=== PATIENT | male | born 1955 | race Caucasian/White ===

== ENCOUNTER 2017-10-15 11:04 | Inpatient (IN) | payer MEDICAID ==
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
[2017-10-15 12:26] LABS: % BASOPHILS 0.6 % (0.0-2.0); % EOSINOPHILS 5.2 % (0.0-5.0); % LYMPHOCYTES 13.2 % (20.0-50.0); % MONOCYTES 8.8 % (2.0-10.0); % NEUTROPHILS 72.2 % (40.0-80.0); EOSINOPHILE ABSOLUTE 0.2 Th/cmm (0.1-0.4); HEMATOCRIT 30.9 % (41.0-60); HEMOGLOBIN 10.3 gm/dL (12-16); LYMPHOCYTE ABSOLUTE 0.6 Th/cmm (1.5-3.0); MEAN CELL VOLUME 96.1 fl (80-99); MEAN CORPUSCULAR HGB CONC 33.3 pg (28.0-36.0); MEAN PLATELET VOLUME 8.1 fl; MONOCYTE ABSOLUTE 0.4 Th/cmm (0.3-1.0); PLATELET COUNT 67 Th/cmm (150-400); RED BLOOD COUNT 3.22 Mil/cmm (4.30-5.70); RED CELL DISTRIBUTION WIDTH 21.3 % (11.5-20.0); WHITE BLOOD COUNT 4.2 Th/cmm (4.8-10.8)
[2017-10-15 12:45] LABS: ALBUMIN 3.5 gm/dL (4.2-5.5); ALKALINE PHOSPHATASE 119 U/L (34-104); ANION GAP 9.7 (7.0-16.0); BILIRUBIN,TOTAL 1.4 mg/dL (0.3-1.0); BUN - UREA NITROGEN 22 mg/dL (7-25); CALCIUM SERUM 9.6 mg/dL (8.6-10.3); CARBON DIOXIDE 28.6 mEq/L (21.0-31.0); CHLORIDE 103 mEq/L (98-107); CREATININE - SERUM 0.8 mg/dL (0.7-1.3); GFR AFRICAN-AMERICAN > 60.0 ml/min (>90); GFR NON AFRICAN-AMERICAN > 60.0 ml/min; GLUCOSE 101 mg/dL (70-105); POTASSIUM SERUM 4.3 mEq/L (3.5-5.1); SGOT 23 U/L (13-39); SGPT/ALT 13 U/L (7-52); SODIUM SERUM 137 mEq/L (136-145); TOTAL PROTEIN,SERUM 7.1 gm/dL (6.0-8.3)
[2017-10-15] MEDS ORDERED: Hydrocodone/APAP 10 mg/325 mg Tab PO STA (12:45)
[2017-10-15] MEDS ORDERED: Hydrocodone/APAP 10 mg/325 mg Tab ONE (12:54)
--- NOTE | 2017-10-15 13:27 | Diagnostic Imaging Report ---
Portable chest x-ray HISTORY: Shortness of breath, cough The heart is enlarged. There does appear to be degree of pulmonary vascular redistribution consistent with a degree of congestive heart failure. Small right pleural effusion. Hazy interstitial markings. Surgical suture material noted over the mid chest. Right shoulder arthroplasty is seen. IMPRESSION: 1. Cardiomegaly with changes suggesting congestive heart failure is noted above. Clinical correlation is needed.
[2017-10-15 15:44] VITALS: BP 112/68
[2017-10-15] MEDS ORDERED: cefTRIAXone 1 GM in Sodium Chloride 0.9% 50 ML IV SCH (16:00)
[2017-10-15] MEDS: Cefepime 2 GM in Sodium Chloride 0.9% 100 ML IV SCH (16:58)
[2017-10-15] MEDS: D5-0.45NS 1,000 ML IV SCH (16:59)
[2017-10-15] MEDS ORDERED: Hydrocodone/APAP 10 mg/325 mg Tab PO ONE (17:01)
[2017-10-15] MEDS: Acetaminophen 500 MG TAB PO PRN (21:17)
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
[2017-10-16] MEDS: Cefepime 2 GM in Sodium Chloride 0.9% 100 ML IV SCH ×2 (04:14→16:36)
[2017-10-16 04:56] LABS: MEAN CELL VOLUME 95.6 fl (80-99)
[2017-10-16 05:04] LABS: HEMATOCRIT 26.2 % (41.0-60); HEMOGLOBIN 8.9 gm/dL (12-16); MEAN CORPUSCULAR HEMOGLOBIN 32.4 pg (26.0-30.0); MEAN CORPUSCULAR HGB CONC 33.9 pg (28.0-36.0); MEAN PLATELET VOLUME 7.8 fl; PLATELET COUNT 56 Th/cmm (150-400); RED BLOOD COUNT 2.74 Mil/cmm (4.30-5.70)
[2017-10-16] MEDS: Acetaminophen 500 MG TAB PO PRN (05:09)
[2017-10-16 05:14] LABS: MANUAL DIFF REQUIRED? YES; WHITE BLOOD COUNT 2.9 Th/cmm (4.8-10.8)
[2017-10-16 05:15] LABS: ANION GAP 8.9 (7.0-16.0); BUN - UREA NITROGEN 24 mg/dL (7-25); CARBON DIOXIDE 27.8 mEq/L (21.0-31.0); CHLORIDE 104 mEq/L (98-107); CHOLESTEROL 104 mg/dL (<200); CREATININE - SERUM 0.7 mg/dL (0.7-1.3); GFR AFRICAN-AMERICAN > 60.0 ml/min (>90); GFR NON AFRICAN-AMERICAN > 60.0 ml/min; GLUCOSE 102 mg/dL (70-105); HDL -HIGH DENSITY LIPOPROTEIN 50 mg/dL (23-92); POTASSIUM SERUM 3.7 mEq/L (3.5-5.1); SODIUM SERUM 137 mEq/L (136-145); TRIGLYCERIDES 30 mg/dL (<150)
[2017-10-16 06:09] LABS: TOTAL CELLS COUNTED 100
[2017-10-16 06:12] LABS: EOSINOPHIL 6 % (0-5); LYMPHOCYTE 10 % (20-50); MONOCYTE 5 % (2-10); NEUTROPHILS 79 % (40-80); PLATELET ESTIMATE SLIGHT DECREASED (NORMAL)
[2017-10-16 06:19] LABS: ESR SEDIMENTATION SED RATE 35 mm/hr (0-20)
[2017-10-16] MEDS: Aspirin 81mg Chewable Tab PO SCH (08:59)
[2017-10-16] MEDS ORDERED: CRANBERRY PO SCH (09:00)
--- NOTE | 2017-10-16 09:43 | Diagnostic Imaging Report ---
CT Chest without IV contrast HISTORY: Sternal infection, rule out abscess COMPARISON: None. Technique: Axial images were obtained from the base of the neck to the upper abdomen without IV contrast. Reconstructions were made. Total DLP to 44, CTD I 6.3 Findings: Exam is limited due to lack of IV contrast. The patient is status post median sternotomy. Minimal surrounding inflammatory changes are noted. Assessment for fluid collections limited due to lack of IV contrast, however, no discrete focal collection identified. Limited assessment of the mediastinum demonstrates no evidence of least adenopathy. Cardiomegaly is noted with atherosclerosis and evidence of previous aortic valve repair. Trace pericardial fluid is noted. Gynecomastia is normal bilaterally. Evaluation of the lung peterson demonstrate hypoventilatory and atelectatic changes of the lungs. Areas of passive atelectatic and consolidative changes seen along the lateral aspect of the right lung. There focal 5 mm nodular opacity possibly focal infiltrate along the anterior/inferior aspect of the right upper lobe (image 50, series 3). Additional 6 mm opacity possible infiltrate or less likely nodule the left lower lobe is noted (image 73, series 3) disease. No pleural effusions. The upper abdomen demonstrates cirrhotic appearing liver. Gallstones are noted. Splenomegaly is noted. There is a moderate-sized hiatal hernia gastroesophageal wall thickening in this region Postsurgical changes of the right shoulder are noted with evidence of right shoulder arthroplasty. Degenerative change of the spine are noted with old mild compression deformity of L1. There is 2 to 3 mm retropulsion at this level. Old left rib fractures are noted. IMPRESSION: Limited exam due to lack of IV contrast. There is evidence of prior median sternotomy. Minimal inflammatory changes of the regional planes, however, no evidence of an abscess. If necessary, short-term follow-up CT exam with IV contrast may be obtained. Passive atelectatic and minimal consolidative change of the lateral aspect of the right lung with probable areas of pleural thickening. There is a 5 mm nodular opacity along the peripheral aspect of the right upper lobe anteriorly and additional 6 mm nodular opacity along the left lung base. Findings may be due to infectious or inflammatory process versus less likely neoplastic process. Correlation with old exams would be helpful. Short-term follow-up 4-6 months surveillance is recommended. Evidence of prior aortic valve replacement Atherosclerotic vascular disease with tortuous aorta. Moderate size hiatal hernia. There is thickening of the gastroesophageal wall in this region. Infectious/inflammatory or neoplastic process cannot be excluded. Clinical correlation recommended. There are probable adjacent gastroesophageal varices. Note exam is limited due to lack of IV contrast. Cirrhotic appearing liver. Splenomegaly. Gallstones. Old mild compression deformity of L1 with 2 to 3 mm posterior retropulsion at this level. Findings appear chronic. Bilateral gynecomastia. Mammography may be helpful if needed.
[2017-10-16] MEDS ORDERED: Magnesium Hydroxide (MOM) 30 mL UDC PO PRN (10:58)
[2017-10-16] MEDS: HYDROmorphone 1 mg/mL 1mL Syr IVP PRN ×3 (12:13→20:53)
--- NOTE | 2017-10-16 14:49 | Diagnostic Imaging Report ---
Nuclear medicine 3 phase bone scan History: Pain, assess osteomyelitis of the sternum Comparison: CT chest on 07/16/2017 Technique/procedure: 24.5 millicuries of technetium labeled MDP was administered intravenously. Flow, blood pool, and delayed images of the sternum were obtained. Flow images demonstrate no significant focal uptake. Blood flow images demonstrate generalized uptake throughout the sternum. Delayed images also demonstrate generalized uptake throughout the sternum. IMPRESSION: General uptake throughout the sternum, this is nonspecific. Osteomyelitis cannot be completely excluded. If indicated MRI may be obtained for further assessment.
[2017-10-16] MEDS: D5-0.45NS 1,000 ML IV SCH (16:39)
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
[2017-10-17] MEDS: HYDROmorphone 1 mg/mL 1mL Syr IVP PRN ×5 (01:08→19:55)
[2017-10-17] MEDS: Cefepime 2 GM in Sodium Chloride 0.9% 100 ML IV SCH ×2 (04:22→15:55)
[2017-10-17] MEDS: Aspirin 81mg Chewable Tab PO SCH (08:37)
--- NOTE | 2017-10-17 10:41 | General Progress Note ---
Subjective - Review of Systems Service Date: 10/17/17 Objective - Results Result Diagrams: 10/16/17 04:30 10/16/17 04:30 Recent Labs: Laboratory Last Values WBC 2.9 Th/cmm (4.8-10.8) L 10/16/17 04:30 RBC 2.74 Mil/cmm (4.30-5.70) L 10/16/17 04:30 Hgb 8.9 gm/dL (12-16) L 10/16/17 04:30 Hct 26.2 % (41.0-60) L 10/16/17 04:30 MCV 95.6 fl (80-99) 10/16/17 04:30 MCH 32.4 pg (26.0-30.0) H 10/16/17 04:30 MCHC Differential 33.9 pg (28.0-36.0) 10/16/17 04:30 RDW 21.0 % (11.5-20.0) H 10/16/17 04:30 Plt Count 56 Th/cmm (150-400) L 10/16/17 04:30 MPV 7.8 fl 10/16/17 04:30 Neutrophils % 72.2 % (40.0-80.0) 10/15/17 12:20 Lymphocytes % 13.2 % (20.0-50.0) L 10/15/17 12:20 Monocytes % 8.8 % (2.0-10.0) 10/15/17 12:20 Eosinophils % 5.2 % (0.0-5.0) H 10/15/17 12:20 Basophils % 0.6 % (0.0-2.0) 10/15/17 12:20 Neutrophils (Manual) 79 % (40-80) 10/16/17 04:30 Lymphocytes 10 % (20-50) L 10/16/17 04:30 Monocytes 5 % (2-10) 10/16/17 04:30 Eosinophils 6 % (0-5) H 10/16/17 04:30 Platelet Estimate SLIGHT DECREASED (NORMAL) 10/16/17 04:30 ESR 35 mm/hr (0-20) H 10/16/17 04:30 Sodium 137 mEq/L (136-145) 10/16/17 04:30 Potassium 3.7 mEq/L (3.5-5.1) 10/16/17 04:30 Chloride 104 mEq/L (98-107) 10/16/17 04:30 Carbon Dioxide 27.8 mEq/L (21.0-31.0) 10/16/17 04:30 Anion Gap 8.9 (7.0-16.0) 10/16/17 04:30 BUN 24 mg/dL (7-25) 10/16/17 04:30 Creatinine 0.7 mg/dL (0.7-1.3) 10/16/17 04:30 Est GFR ( Amer) > 60.0 ml/min (>90) 10/16/17 04:30 Est GFR (Non-Af Amer) > 60.0 ml/min 10/16/17 04:30 BUN/Creatinine Ratio 34.3 10/16/17 04:30 Glucose 102 mg/dL (70-105) 10/16/17 04:30 Whole Bld Lactic Acid 1.59 mmol/L (0.60-1.99) 10/15/17 12:20 Calcium 9.0 mg/dL (8.6-10.3) 10/16/17 04:30 Total Bilirubin 1.4 mg/dL (0.3-1.0) H 10/15/17 12:20 AST 23 U/L (13-39) 10/15/17 12:20 ALT 13 U/L (7-52) 10/15/17 12:20 Alkaline Phosphatase 119 U/L (34-104) H 10/15/17 12:20 C-Reactive Protein 0.9 mg/dL (0.0-0.9) 10/16/17 04:30 Total Protein 7.1 gm/dL (6.0-8.3) 10/15/17 12:20 Albumin 3.5 gm/dL (4.2-5.5) L 10/15/17 12:20 Globulin 3.6 gm/dL 10/15/17 12:20 Albumin/Globulin Ratio 1.0 (1.0-1.8) 10/15/17 12:20 Triglycerides 30 mg/dL (<150) 10/16/17 04:30 Cholesterol 104 mg/dL (<200) 10/16/17 04:30 LDL Cholesterol Direct 43 mg/dL (75-193) L 10/16/17 04:30 HDL Cholesterol 50 mg/dL (23-92) 10/16/17 04:30 TSH 1.02 uIU/ml (0.34-5.60) 10/16/17 04:30 Vancomycin Trough 16.5 ug/mL (5-10) H 10/17/17 08:57 - Physical Exam Vitals and I&O: Vital Signs Temp 98.2 F 10/17/17 07:34 Pulse 73 10/17/17 07:34 Resp 18 10/17/17 08:00 BP 121/51 10/17/17 07:34 Pulse Ox 94 10/17/17 07:34 Intake & Output 10/16/17 10/17/17 10/17/17 18:59 06:59 18:59 Intake Total 3350 250 Balance 3350 250 Weight (lbs) 72.711 kg 74.525 kg Intake: Intake, IV Amount 1350 250 Cefepime 2 gm In Sodium 100 Chloride 0.9% 100 ml @ 100 mls/hr IV Q12H [facility] Rx #:[id number] D5-0.45NS 1,000 ml @ 50 1000 mls/hr IV .Q20H [facility] Rx#: [id number] Vancomycin HCl 1.25 gm In 250 250 Sodium Chloride 0.9% 250 ml @ 165 mls/hr IV Q12H [facility] Rx#:[id number] Oral 2000 Other: # Voids 4 # Bowel Movements 1 Stool Characteristics Formed Formed Hard Hard Weight Source Bedscale Bedscale Active Medications: Current Medications Acetaminophen (Tylenol) 650 mg PO Q6HR PRN PRN Reason: TEMP >100.5 OR MILD PAIN Stop: 12/14/17 19:08 Acetaminophen (Tylenol Extra Strength) 1,000 mg PO Q8H PRN PRN Reason: MODERATE PAIN Stop: 12/14/17 19:08 Last Admin: 10/16/17 05:09 Dose: 1,000 mg Aspirin (Aspirin Chewable) 81 mg PO DAILY [facility] Stop: 12/15/17 08:59 Last Admin: 10/17/17 08:37 Dose: 81 mg Bisacodyl (Dulcolax 10 Mg Supp) 10 mg RC DAILY PRN PRN Reason: IF MOM INEFFECTIVE Stop: 12/14/17 19:08 Bumetanide (Bumex) 1 mg PO DAILY [facility] Stop: 12/15/17 08:59 Last Admin: 10/17/17 08:40 Dose: Not Given Hydromorphone HCl (Dilaudid) 1 mg IVP Q4H PRN PRN Reason: Pain (Severe) Stop: 12/15/17 10:55 Last Admin: 10/17/17 09:38 Dose: 1 mg Cefepime HCl 2 gm/ Sodium (Chloride) 100 mls @ 100 mls/hr IV Q12H [facility] Stop: 12/14/17 15:59 Last Admin: 10/17/17 04:22 Dose: 100 mls/hr Dextrose/Sodium Chloride (D5-0.45ns) 1,000 mls @ 50 mls/hr IV .Q20H [facility] Stop: 12/14/17 15:06 Last Admin: 10/16/17 16:39 Dose: 50 mls/hr Vancomycin HCl 1.25 gm/ Sodium (Chloride) 250 mls @ 165 mls/hr IV Q12H [facility] Stop: 12/15/17 08:59 Last Admin: 10/17/17 09:38 Dose: 165 mls/hr Magnesium Hydroxide (Milk Of Magnesia) 30 ml PO HS PRN PRN Reason: Constipation Stop: 12/15/17 10:57 Miscellaneous (Vancomycin Iv Per Pharmacy) 1 ea [facility] PRN [facility] Stop: 12/14/17 15:14 Neomycin Sulfate (Neomycin) 500 mg PO Q6HR [facility] Stop: 12/16/17 00:00 Last Admin: 10/17/17 06:46 Dose: 500 mg Assessment/Plan - Problem List Patient Problems: All Active Problems SURGICAL ABSCESS FORMATIONS TO STERNUM (Acute) - Assessment Assessment: * Hepatitis C * Splenomegaly * Thrombocytopenia Monitor plt for now. no transfusion
--- NOTE | 2017-10-17 15:17 | General Progress Note ---
Subjective - Review of Systems Events since last encounter: in no acute distress Objective - Results Result Diagrams: 10/16/17 04:30 10/16/17 04:30 Recent Labs: Laboratory Last Values WBC 2.9 Th/cmm (4.8-10.8) L 10/16/17 04:30 RBC 2.74 Mil/cmm (4.30-5.70) L 10/16/17 04:30 Hgb 8.9 gm/dL (12-16) L 10/16/17 04:30 Hct 26.2 % (41.0-60) L 10/16/17 04:30 MCV 95.6 fl (80-99) 10/16/17 04:30 MCH 32.4 pg (26.0-30.0) H 10/16/17 04:30 MCHC Differential 33.9 pg (28.0-36.0) 10/16/17 04:30 RDW 21.0 % (11.5-20.0) H 10/16/17 04:30 Plt Count 56 Th/cmm (150-400) L 10/16/17 04:30 MPV 7.8 fl 10/16/17 04:30 Neutrophils % 72.2 % (40.0-80.0) 10/15/17 12:20 Lymphocytes % 13.2 % (20.0-50.0) L 10/15/17 12:20 Monocytes % 8.8 % (2.0-10.0) 10/15/17 12:20 Eosinophils % 5.2 % (0.0-5.0) H 10/15/17 12:20 Basophils % 0.6 % (0.0-2.0) 10/15/17 12:20 Neutrophils (Manual) 79 % (40-80) 10/16/17 04:30 Lymphocytes 10 % (20-50) L 10/16/17 04:30 Monocytes 5 % (2-10) 10/16/17 04:30 Eosinophils 6 % (0-5) H 10/16/17 04:30 Platelet Estimate SLIGHT DECREASED (NORMAL) 10/16/17 04:30 ESR 35 mm/hr (0-20) H 10/16/17 04:30 Sodium 137 mEq/L (136-145) 10/16/17 04:30 Potassium 3.7 mEq/L (3.5-5.1) 10/16/17 04:30 Chloride 104 mEq/L (98-107) 10/16/17 04:30 Carbon Dioxide 27.8 mEq/L (21.0-31.0) 10/16/17 04:30 Anion Gap 8.9 (7.0-16.0) 10/16/17 04:30 BUN 24 mg/dL (7-25) 10/16/17 04:30 Creatinine 0.7 mg/dL (0.7-1.3) 10/16/17 04:30 Est GFR ( Amer) > 60.0 ml/min (>90) 10/16/17 04:30 Est GFR (Non-Af Amer) > 60.0 ml/min 10/16/17 04:30 BUN/Creatinine Ratio 34.3 10/16/17 04:30 Glucose 102 mg/dL (70-105) 10/16/17 04:30 Whole Bld Lactic Acid 1.59 mmol/L (0.60-1.99) 10/15/17 12:20 Calcium 9.0 mg/dL (8.6-10.3) 10/16/17 04:30 Total Bilirubin 1.4 mg/dL (0.3-1.0) H 10/15/17 12:20 AST 23 U/L (13-39) 10/15/17 12:20 ALT 13 U/L (7-52) 10/15/17 12:20 Alkaline Phosphatase 119 U/L (34-104) H 10/15/17 12:20 C-Reactive Protein 0.9 mg/dL (0.0-0.9) 10/16/17 04:30 Total Protein 7.1 gm/dL (6.0-8.3) 10/15/17 12:20 Albumin 3.5 gm/dL (4.2-5.5) L 10/15/17 12:20 Globulin 3.6 gm/dL 10/15/17 12:20 Albumin/Globulin Ratio 1.0 (1.0-1.8) 10/15/17 12:20 Triglycerides 30 mg/dL (<150) 10/16/17 04:30 Cholesterol 104 mg/dL (<200) 10/16/17 04:30 LDL Cholesterol Direct 43 mg/dL (75-193) L 10/16/17 04:30 HDL Cholesterol 50 mg/dL (23-92) 10/16/17 04:30 TSH 1.02 uIU/ml (0.34-5.60) 10/16/17 04:30 Vancomycin Trough 16.5 ug/mL (5-10) H 10/17/17 08:57 - Physical Exam Vitals and I&O: Vital Signs Temp 98.0 F 10/17/17 11:24 Pulse 68 10/17/17 11:24 Resp 18 10/17/17 11:24 BP 110/63 10/17/17 11:24 Pulse Ox 97 10/17/17 11:24 Intake & Output 10/16/17 10/17/17 10/17/17 18:59 06:59 18:59 Intake Total 3350 250 Balance 3350 250 Weight (lbs) 72.711 kg 74.525 kg Intake: Intake, IV Amount 1350 250 Cefepime 2 gm In Sodium 100 Chloride 0.9% 100 ml @ 100 mls/hr IV Q12H [facility] Rx #:[id number] D5-0.45NS 1,000 ml @ 50 1000 mls/hr IV .Q20H [facility] Rx#: [id number] Vancomycin HCl 1.25 gm In 250 250 Sodium Chloride 0.9% 250 ml @ 165 mls/hr IV Q12H [facility] Rx#:[id number] Oral 2000 Other: # Voids 4 # Bowel Movements 1 Stool Characteristics Formed Formed Hard Hard Weight Source Bedscale Bedscale Active Medications: Current Medications Acetaminophen (Tylenol) 650 mg PO Q6HR PRN PRN Reason: TEMP >100.5 OR MILD PAIN Stop: 12/14/17 19:08 Acetaminophen (Tylenol Extra Strength) 1,000 mg PO Q8H PRN PRN Reason: MODERATE PAIN Stop: 12/14/17 19:08 Last Admin: 10/16/17 05:09 Dose: 1,000 mg Aspirin (Aspirin Chewable) 81 mg PO DAILY [facility] Stop: 12/15/17 08:59 Last Admin: 10/17/17 08:37 Dose: 81 mg Bisacodyl (Dulcolax 10 Mg Supp) 10 mg RC DAILY PRN PRN Reason: IF MOM INEFFECTIVE Stop: 12/14/17 19:08 Bumetanide (Bumex) 1 mg PO DAILY [facility] Stop: 12/15/17 08:59 Last Admin: 10/17/17 08:40 Dose: Not Given Hydromorphone HCl (Dilaudid) 1 mg IVP Q4H PRN PRN Reason: Pain (Severe) Stop: 12/15/17 10:55 Last Admin: 10/17/17 13:43 Dose: 1 mg Cefepime HCl 2 gm/ Sodium (Chloride) 100 mls @ 100 mls/hr IV Q12H [facility] Stop: 12/14/17 15:59 Last Admin: 10/17/17 04:22 Dose: 100 mls/hr Dextrose/Sodium Chloride (D5-0.45ns) 1,000 mls @ 50 mls/hr IV .Q20H [facility] Stop: 12/14/17 15:06 Last Admin: 10/16/17 16:39 Dose: 50 mls/hr Vancomycin HCl 1.25 gm/ Sodium (Chloride) 250 mls @ 165 mls/hr IV Q12H [facility] Stop: 12/15/17 08:59 Last Admin: 10/17/17 09:38 Dose: 165 mls/hr Magnesium Hydroxide (Milk Of Magnesia) 30 ml PO HS PRN PRN Reason: Constipation Stop: 12/15/17 10:57 Miscellaneous (Vancomycin Iv Per Pharmacy) 1 ea [facility] PRN [facility] Stop: 12/14/17 15:14 Neomycin Sulfate (Neomycin) 500 mg PO Q6HR [facility] Stop: 12/16/17 00:00 Last Admin: 10/17/17 11:18 Dose: 500 mg Assessment/Plan - Problem List Patient Problems: All Active Problems SURGICAL ABSCESS FORMATIONS TO STERNUM (Acute) - Assessment Assessment: Current Active Problems Problem Status Onset SURGICAL ABSCESS FORMATIONS TO STERNUM Acute chf hx aortic valve replacement hep c cirrhosis thrombocytopenia - Plan Plan: id consult wound care hematology consult continue the rest of the orders
[2017-10-17] MEDS: Diphenoxylate/Atropine 2.5mg Tab PO SCH (22:58)
[2017-10-18] MEDS: HYDROmorphone 1 mg/mL 1mL Syr IVP PRN ×4 (00:57→15:43)
[2017-10-18] MEDS: Cefepime 2 GM in Sodium Chloride 0.9% 100 ML IV SCH ×2 (04:03→15:39)
[2017-10-18 06:53] LABS: % BASOPHILS 0.6 % (0.0-2.0); % EOSINOPHILS 7.7 % (0.0-5.0); % LYMPHOCYTES 11.5 % (20.0-50.0); % MONOCYTES 11.4 % (2.0-10.0); % NEUTROPHILS 68.8 % (40.0-80.0); EOSINOPHILE ABSOLUTE 0.3 Th/cmm (0.1-0.4); HEMATOCRIT 29.6 % (41.0-60); HEMOGLOBIN 9.8 gm/dL (12-16); LYMPHOCYTE ABSOLUTE 0.4 Th/cmm (1.5-3.0); MEAN CELL VOLUME 95.4 fl (80-99); MEAN CORPUSCULAR HEMOGLOBIN 31.6 pg (26.0-30.0); MEAN CORPUSCULAR HGB CONC 33.1 pg (28.0-36.0); MEAN PLATELET VOLUME 8.4 fl; MONOCYTE ABSOLUTE 0.4 Th/cmm (0.3-1.0); NEUTROPHILE ABSOLUTE 2.3 Th/cmm (1.8-8.0); PLATELET COUNT 54 Th/cmm (150-400); RED BLOOD COUNT 3.11 Mil/cmm (4.30-5.70); RED CELL DISTRIBUTION WIDTH 20.4 % (11.5-20.0)
[2017-10-18 07:02] LABS: WHITE BLOOD COUNT 3.4 Th/cmm (4.8-10.8)
[2017-10-18] MEDS: Diphenoxylate/Atropine 2.5mg Tab PO SCH ×2 (08:09→13:35)
[2017-10-18] MEDS: Aspirin 81mg Chewable Tab PO SCH (08:09)
--- NOTE | 2017-10-18 10:38 | General Progress Note ---
Subjective - Review of Systems Service Date: 10/18/17 Objective - Results Result Diagrams: 10/18/17 05:28 10/16/17 04:30 Recent Labs: Laboratory Last Values WBC 3.4 Th/cmm (4.8-10.8) L 10/18/17 05:28 RBC 3.11 Mil/cmm (4.30-5.70) L 10/18/17 05:28 Hgb 9.8 gm/dL (12-16) L 10/18/17 05:28 Hct 29.6 % (41.0-60) L 10/18/17 05:28 MCV 95.4 fl (80-99) 10/18/17 05:28 MCH 31.6 pg (26.0-30.0) H 10/18/17 05:28 MCHC Differential 33.1 pg (28.0-36.0) 10/18/17 05:28 RDW 20.4 % (11.5-20.0) H 10/18/17 05:28 Plt Count 54 Th/cmm (150-400) L 10/18/17 05:28 MPV 8.4 fl 10/18/17 05:28 Neutrophils % 68.8 % (40.0-80.0) 10/18/17 05:28 Lymphocytes % 11.5 % (20.0-50.0) L 10/18/17 05:28 Monocytes % 11.4 % (2.0-10.0) H 10/18/17 05:28 Eosinophils % 7.7 % (0.0-5.0) H 10/18/17 05:28 Basophils % 0.6 % (0.0-2.0) 10/18/17 05:28 Neutrophils (Manual) 79 % (40-80) 10/16/17 04:30 Lymphocytes 10 % (20-50) L 10/16/17 04:30 Monocytes 5 % (2-10) 10/16/17 04:30 Eosinophils 6 % (0-5) H 10/16/17 04:30 Platelet Estimate SLIGHT DECREASED (NORMAL) 10/16/17 04:30 ESR 35 mm/hr (0-20) H 10/16/17 04:30 Sodium 137 mEq/L (136-145) 10/16/17 04:30 Potassium 3.7 mEq/L (3.5-5.1) 10/16/17 04:30 Chloride 104 mEq/L (98-107) 10/16/17 04:30 Carbon Dioxide 27.8 mEq/L (21.0-31.0) 10/16/17 04:30 Anion Gap 8.9 (7.0-16.0) 10/16/17 04:30 BUN 24 mg/dL (7-25) 10/16/17 04:30 Creatinine 0.7 mg/dL (0.7-1.3) 10/16/17 04:30 Est GFR ( Amer) > 60.0 ml/min (>90) 10/16/17 04:30 Est GFR (Non-Af Amer) > 60.0 ml/min 10/16/17 04:30 BUN/Creatinine Ratio 34.3 10/16/17 04:30 Glucose 102 mg/dL (70-105) 10/16/17 04:30 Whole Bld Lactic Acid 1.59 mmol/L (0.60-1.99) 10/15/17 12:20 Calcium 9.0 mg/dL (8.6-10.3) 10/16/17 04:30 Total Bilirubin 1.4 mg/dL (0.3-1.0) H 10/15/17 12:20 AST 23 U/L (13-39) 10/15/17 12:20 ALT 13 U/L (7-52) 10/15/17 12:20 Alkaline Phosphatase 119 U/L (34-104) H 10/15/17 12:20 C-Reactive Protein 0.9 mg/dL (0.0-0.9) 10/16/17 04:30 Total Protein 7.1 gm/dL (6.0-8.3) 10/15/17 12:20 Albumin 3.5 gm/dL (4.2-5.5) L 10/15/17 12:20 Globulin 3.6 gm/dL 10/15/17 12:20 Albumin/Globulin Ratio 1.0 (1.0-1.8) 10/15/17 12:20 Triglycerides 30 mg/dL (<150) 10/16/17 04:30 Cholesterol 104 mg/dL (<200) 10/16/17 04:30 LDL Cholesterol Direct 43 mg/dL (75-193) L 10/16/17 04:30 HDL Cholesterol 50 mg/dL (23-92) 10/16/17 04:30 TSH 1.02 uIU/ml (0.34-5.60) 10/16/17 04:30 Vancomycin Trough 16.5 ug/mL (5-10) H 10/17/17 08:57 - Physical Exam Vitals and I&O: Vital Signs Temp 98 F 10/18/17 07:52 Pulse 97 10/18/17 07:52 Resp 18 10/18/17 08:00 BP 107/59 10/18/17 07:52 Pulse Ox 94 10/18/17 07:52 Intake & Output 10/17/17 10/18/17 10/18/17 18:59 06:59 18:59 Intake Total 750 690 Output Total 300 Balance 750 690 -300 Weight (lbs) 75.296 kg 49.124 kg 48.988 kg Intake: Intake, IV Amount 250 450 Cefepime 2 gm In Sodium 200 Chloride 0.9% 100 ml @ 100 mls/hr IV Q12H [facility] Rx #:[id number] Vancomycin HCl 1.25 gm In 250 250 Sodium Chloride 0.9% 250 ml @ 165 mls/hr IV Q12H [facility] Rx#:[id number] Oral 500 240 Output: Urine 300 Other: # Voids 3 500 1 # Bowel Movements 1 1 Weight Source Bedscale Bedscale Bedscale Active Medications: Current Medications Acetaminophen (Tylenol) 650 mg PO Q6HR PRN PRN Reason: TEMP >100.5 OR MILD PAIN Stop: 12/14/17 19:08 Acetaminophen (Tylenol Extra Strength) 1,000 mg PO Q8H PRN PRN Reason: MODERATE PAIN Stop: 12/14/17 19:08 Last Admin: 10/16/17 05:09 Dose: 1,000 mg Aspirin (Aspirin Chewable) 81 mg PO DAILY [facility] Stop: 12/15/17 08:59 Last Admin: 10/18/17 08:09 Dose: 81 mg Bisacodyl (Dulcolax 10 Mg Supp) 10 mg RC DAILY PRN PRN Reason: IF MOM INEFFECTIVE Stop: 12/14/17 19:08 Bumetanide (Bumex) 1 mg PO DAILY [facility] Stop: 12/15/17 08:59 Last Admin: 10/18/17 08:10 Dose: Not Given Diphenoxylate HCl/Atropine (Lomotil) 1 tab PO TID [facility] Stop: 10/19/17 22:59 Last Admin: 10/18/17 08:09 Dose: 1 tab Hydromorphone HCl (Dilaudid) 2 mg IVP Q4H PRN PRN Reason: Pain (Severe) Stop: 12/15/17 10:55 Last Admin: 10/18/17 06:36 Dose: 2 mg Cefepime HCl 2 gm/ Sodium (Chloride) 100 mls @ 100 mls/hr IV Q12H [facility] Stop: 12/14/17 15:59 Last Infusion: 10/18/17 05:30 Dose: Infused Vancomycin HCl 1.25 gm/ Sodium (Chloride) 250 mls @ 165 mls/hr IV Q12H [facility] Stop: 12/15/17 08:59 Last Admin: 10/18/17 09:13 Dose: 165 mls/hr Magnesium Hydroxide (Milk Of Magnesia) 30 ml PO HS PRN PRN Reason: Constipation Stop: 12/15/17 10:57 Miscellaneous (Vancomycin Iv Per Pharmacy) 1 ea [facility] PRN [facility] Stop: 12/14/17 15:14 Neomycin Sulfate (Neomycin) 500 mg PO Q6HR [facility] Stop: 12/16/17 00:00 Last Admin: 10/18/17 06:22 Dose: 500 mg Zolpidem Tartrate (Ambien) 10 mg PO HS PRN PRN Reason: Insomnia Stop: 12/16/17 21:43 Last Admin: 10/17/17 22:30 Dose: 10 mg Assessment/Plan - Problem List Patient Problems: All Active Problems SURGICAL ABSCESS FORMATIONS TO STERNUM (Acute) - Assessment Assessment: * Hepatitis C * Splenomegaly * Thrombocytopenia * Sternal abcess Monitor plt for now. no transfusion
[2017-10-18 12:15] LABS: FERRITIN 186 ng/mL (30-400); FOLIC ACID 17.6 ng/mL (>3.0); IRON LC 41 ug/dL (38-169); TIBC (LC) 215 ug/dL (250-450); UIBC 174 ug/dL (111-343)
--- NOTE | 2017-10-18 16:07 | Infectious Disease Prog Note ---
Infectious Disease Subjective - Review of Systems Service Date: 10/18/17 Subjective: cc hep c cellulitis hpi- pt schedule for discharge d/w pmd maxipime x 7 days recomend ros no fevr o/evss chest claer abd soft ext pilse dx cellulitis hep c maxipime x 7 adys Infectious Disease Objective - Results Result Diagrams: 10/18/17 05:28 10/16/17 04:30 Recent Labs: Laboratory Last Values WBC 3.4 Th/cmm (4.8-10.8) L 10/18/17 05:28 RBC 3.11 Mil/cmm (4.30-5.70) L 10/18/17 05:28 Hgb 9.8 gm/dL (12-16) L 10/18/17 05:28 Hct 29.6 % (41.0-60) L 10/18/17 05:28 MCV 95.4 fl (80-99) 10/18/17 05:28 MCH 31.6 pg (26.0-30.0) H 10/18/17 05:28 MCHC Differential 33.1 pg (28.0-36.0) 10/18/17 05:28 RDW 20.4 % (11.5-20.0) H 10/18/17 05:28 Plt Count 54 Th/cmm (150-400) L 10/18/17 05:28 MPV 8.4 fl 10/18/17 05:28 Neutrophils % 68.8 % (40.0-80.0) 10/18/17 05:28 Lymphocytes % 11.5 % (20.0-50.0) L 10/18/17 05:28 Monocytes % 11.4 % (2.0-10.0) H 10/18/17 05:28 Eosinophils % 7.7 % (0.0-5.0) H 10/18/17 05:28 Basophils % 0.6 % (0.0-2.0) 10/18/17 05:28 Neutrophils (Manual) 79 % (40-80) 10/16/17 04:30 Lymphocytes 10 % (20-50) L 10/16/17 04:30 Monocytes 5 % (2-10) 10/16/17 04:30 Eosinophils 6 % (0-5) H 10/16/17 04:30 Platelet Estimate SLIGHT DECREASED (NORMAL) 10/16/17 04:30 ESR 35 mm/hr (0-20) H 10/16/17 04:30 Sodium 137 mEq/L (136-145) 10/16/17 04:30 Potassium 3.7 mEq/L (3.5-5.1) 10/16/17 04:30 Chloride 104 mEq/L (98-107) 10/16/17 04:30 Carbon Dioxide 27.8 mEq/L (21.0-31.0) 10/16/17 04:30 Anion Gap 8.9 (7.0-16.0) 10/16/17 04:30 BUN 24 mg/dL (7-25) 10/16/17 04:30 Creatinine 0.7 mg/dL (0.7-1.3) 10/16/17 04:30 Est GFR ( Amer) > 60.0 ml/min (>90) 10/16/17 04:30 Est GFR (Non-Af Amer) > 60.0 ml/min 10/16/17 04:30 BUN/Creatinine Ratio 34.3 10/16/17 04:30 Glucose 102 mg/dL (70-105) 10/16/17 04:30 Whole Bld Lactic Acid 1.59 mmol/L (0.60-1.99) 10/15/17 12:20 Calcium 9.0 mg/dL (8.6-10.3) 10/16/17 04:30 Iron 41 ug/dL (38-169) 10/17/17 04:30 TIBC 215 ug/dL (250-450) L 10/17/17 04:30 Iron Saturation 19 % (15-55) 10/17/17 04:30 Unsaturated IBC 174 ug/dL (111-343) 10/17/17 04:30 Ferritin 186 ng/mL (30-400) 10/17/17 04:30 Total Bilirubin 1.4 mg/dL (0.3-1.0) H 10/15/17 12:20 AST 23 U/L (13-39) 10/15/17 12:20 ALT 13 U/L (7-52) 10/15/17 12:20 Alkaline Phosphatase 119 U/L (34-104) H 10/15/17 12:20 C-Reactive Protein 0.9 mg/dL (0.0-0.9) 10/16/17 04:30 Total Protein 7.1 gm/dL (6.0-8.3) 10/15/17 12:20 Albumin 3.5 gm/dL (4.2-5.5) L 10/15/17 12:20 Globulin 3.6 gm/dL 10/15/17 12:20 Albumin/Globulin Ratio 1.0 (1.0-1.8) 10/15/17 12:20 Triglycerides 30 mg/dL (<150) 10/16/17 04:30 Cholesterol 104 mg/dL (<200) 10/16/17 04:30 LDL Cholesterol Direct 43 mg/dL (75-193) L 10/16/17 04:30 HDL Cholesterol 50 mg/dL (23-92) 10/16/17 04:30 Vitamin B12 418 pg/mL (232-1245) 10/17/17 04:30 Folic Acid 17.6 ng/mL (>3.0) 10/17/17 04:30 TSH 1.02 uIU/ml (0.34-5.60) 10/16/17 04:30 Vancomycin Trough 16.5 ug/mL (5-10) H 10/17/17 08:57 - Physical Exam Vitals and I&O: Vital Signs Temp 98.6 F 10/18/17 15:31 Pulse 69 10/18/17 15:31 Resp 18 10/18/17 15:31 BP 115/53 10/18/17 15:31 Pulse Ox 99 10/18/17 15:31 Intake & Output 10/17/17 10/18/17 10/18/17 18:59 06:59 18:59 Intake Total 750 690 Output Total 300 Balance 750 690 -300 Weight (lbs) 75.296 kg 49.124 kg 48.988 kg Intake: Intake, IV Amount 250 450 Cefepime 2 gm In Sodium 200 Chloride 0.9% 100 ml @ 100 mls/hr IV Q12H [facility] Rx #:[id number] Vancomycin HCl 1.25 gm In 250 250 Sodium Chloride 0.9% 250 ml @ 165 mls/hr IV Q12H [facility] Rx#:[id number] Oral 500 240 Output: Urine 300 Other: # Voids 3 500 1 # Bowel Movements 1 1 Weight Source Bedscale Bedscale Bedscale Active Medications: Current Medications Acetaminophen (Tylenol) 650 mg PO Q6HR PRN PRN Reason: TEMP >100.5 OR MILD PAIN Stop: 12/14/17 19:08 Acetaminophen (Tylenol Extra Strength) 1,000 mg PO Q8H PRN PRN Reason: MODERATE PAIN Stop: 12/14/17 19:08 Last Admin: 10/16/17 05:09 Dose: 1,000 mg Aspirin (Aspirin Chewable) 81 mg PO DAILY [facility] Stop: 12/15/17 08:59 Last Admin: 10/18/17 08:09 Dose: 81 mg Bisacodyl (Dulcolax 10 Mg Supp) 10 mg RC DAILY PRN PRN Reason: IF MOM INEFFECTIVE Stop: 12/14/17 19:08 Bumetanide (Bumex) 1 mg PO DAILY [facility] Stop: 12/15/17 08:59 Last Admin: 10/18/17 08:10 Dose: Not Given Diphenoxylate HCl/Atropine (Lomotil) 1 tab PO TID [facility] Stop: 10/19/17 22:59 Last Admin: 10/18/17 13:35 Dose: 1 tab Hydromorphone HCl (Dilaudid) 2 mg IVP Q4H PRN PRN Reason: Pain (Severe) Stop: 12/15/17 10:55 Last Admin: 10/18/17 15:43 Dose: 2 mg Cefepime HCl 2 gm/ Sodium (Chloride) 100 mls @ 100 mls/hr IV Q12H [facility] Stop: 12/14/17 15:59 Last Admin: 10/18/17 15:39 Dose: 100 mls/hr Vancomycin HCl 1.25 gm/ Sodium (Chloride) 250 mls @ 165 mls/hr IV Q12H [facility] Stop: 12/15/17 08:59 Last Admin: 10/18/17 09:13 Dose: 165 mls/hr Magnesium Hydroxide (Milk Of Magnesia) 30 ml PO HS PRN PRN Reason: Constipation Stop: 12/15/17 10:57 Miscellaneous (Vancomycin Iv Per Pharmacy) 1 ea MC PRN [facility] Stop: 12/14/17 15:14 Neomycin Sulfate (Neomycin) 500 mg PO Q6HR [facility] Stop: 12/16/17 00:00 Last Admin: 10/18/17 11:47 Dose: 500 mg Zolpidem Tartrate (Ambien) 10 mg PO HS PRN PRN Reason: Insomnia Stop: 12/16/17 21:43 Last Admin: 10/17/17 22:30 Dose: 10 mg Infectious Disease Assmt/Plan - Problem List Patient Problems: All Active Problems SURGICAL ABSCESS FORMATIONS TO STERNUM (Acute) Wound infection (Acute) T14.8XXA, L08.9
== END 2017-10-18 17:55 | DRG 383 ==
LOC: ER 11:04 → MSI 13:10
PROVIDERS: ADMIT Internal Medicine; ATTEND Internal Medicine
DX: L03.313 Cellulitis of chest wall (principal); E43 Unspecified severe protein-calorie malnutrition; J18.9 Pneumonia, unspecified organism; D61.818 Other pancytopenia; I50.9 Heart failure, unspecified; L02.213 Cutaneous abscess of chest wall; D73.1 Hypersplenism; K74.60 Unspecified cirrhosis of liver; B19.20 Unspecified viral hepatitis C without hepatic coma; Z88.5 Allergy status to narcotic agent; Z95.2 Presence of prosthetic heart valve; Z68.1 Body mass index [BMI] 19.9 or less, adult; Z87.891 Personal history of nicotine dependence; Z82.49 Family history of ischemic heart disease and other diseases of the circulatory system
CPT/HCPCS: 36415-UA; 71045-TC; 71250-TC; 78315-TC; 80048-TC; 80053-TC; 80061-TC; 80202-TC; 82607-90; 82728-90; 82746-90; 83540-90; 83550-90; 83605; 84443-TC; 85007-TC; 85025-TC; 85027-TC; 85652-TC; 86141-TC; 87070-90; 87086-90; A9503; J0692; J0696; J1170; J3370; Z7610

== ENCOUNTER 2017-11-01 12:09 | Inpatient (IN) | payer MEDICAID ==
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
[2017-11-01 12:47] LABS: % BASOPHILS 1.8 % (0.0-2.0); % EOSINOPHILS 6.3 % (0.0-5.0); % LYMPHOCYTES 13.9 % (20.0-50.0); % MONOCYTES 8.5 % (2.0-10.0); % NEUTROPHILS 69.5 % (40.0-80.0); BASOPHILE ABSOLUTE 0.1 Th/cumm (0-0.2); EOSINOPHILE ABSOLUTE 0.2 Th/cmm (0.1-0.4); HEMATOCRIT 33.5 % (41.0-60); HEMOGLOBIN 11.2 gm/dL (12-16); LYMPHOCYTE ABSOLUTE 0.4 Th/cmm (1.5-3.0); MEAN CELL VOLUME 95.3 fl (80-99); MEAN CORPUSCULAR HEMOGLOBIN 31.8 pg (26.0-30.0); MEAN CORPUSCULAR HGB CONC 33.4 pg (28.0-36.0); MEAN PLATELET VOLUME 8.1 fl; MONOCYTE ABSOLUTE 0.3 Th/cmm (0.3-1.0); NEUTROPHILE ABSOLUTE 2.1 Th/cmm (1.8-8.0); PLATELET COUNT 66 Th/cmm (150-400); RED BLOOD COUNT 3.52 Mil/cmm (4.30-5.70); RED CELL DISTRIBUTION WIDTH 16.8 % (11.5-20.0)
[2017-11-01 12:49] LABS: WHITE BLOOD COUNT 3.1 Th/cmm (4.8-10.8)
[2017-11-01 13:00] LABS: ANION GAP 7.8 (7.0-16.0); BUN - UREA NITROGEN 17 mg/dL (7-25); CALCIUM SERUM 9.5 mg/dL (8.6-10.3); CARBON DIOXIDE 31.4 mEq/L (21.0-31.0); CHLORIDE 101 mEq/L (98-107); CREATININE - SERUM 0.6 mg/dL (0.7-1.3); GFR AFRICAN-AMERICAN > 60.0 ml/min (>90); GFR NON AFRICAN-AMERICAN > 60.0 ml/min; GLUCOSE 141 mg/dL (70-105); POTASSIUM SERUM 4.2 mEq/L (3.5-5.1); SODIUM SERUM 136 mEq/L (136-145)
--- NOTE | 2017-11-01 13:39 | Diagnostic Imaging Report ---
Portable chest x-ray HISTORY: Shortness of breath, pain, prior surgery Compared with the prior exam of 10/15/2017, the heart remains enlarged. Pleural reaction noted about the right costophrenic angle unchanged consistent with pleural thickening. No acute focal pulmonary processes. Surgical suture material noted over the mid chest along with changes of a cardiac valve replacement. Right shoulder arthroplasty. IMPRESSION: 1. No acute focal pulmonary processes 2. Chronic pleural changes (thickening) about the right lower hemithorax 3. Surgical changes 4. Cardiomegaly
[2017-11-02] MEDS ORDERED: Acetaminophen 500 MG TAB PO PRN (07:48)
[2017-11-02] MEDS ORDERED: Fleet Enema 135 mL RC PRN (07:48)
[2017-11-02] MEDS ORDERED: Magnesium Hydroxide (MOM) 30 mL UDC PO PRN (07:48)
--- NOTE | 2017-11-02 08:16 | Consultation ---
DATE OF CONSULTATION: 11/02/2017 PHYSICIAN: Dr. Sal. MAINTENANCE ENGINEER OIL FIELD: Dr. Winslow. TYPE OF THE REPORT: Psychiatric consult. REASON FOR THE CONSULT: Depression. HISTORY OF PRESENT ILLNESS: The patient is a 62-year-old male who was admitted to the hospital because of complaining of chest wall pain. It was noted that the patient has been depressed and Dr. Sal asked me to evaluate the patient. The patient said "feeling tired." He also added that he has been feeling depressed and he was seeing a psychiatrist in the past for depression. He is feeling hopeless and helpless, but he denies any intention to harm himself or others. The patient also has lack of energy and having difficulty concentrating. Also, during my interview, the patient was guarded. PAST PSYCHIATRIC HISTORY: The patient said that he saw a psychiatrist in the past. PAST MEDICAL HISTORY: The patient was admitted with chest wall pain. SOCIAL HISTORY: The patient lives in a snf. He denies any alcohol or any street drug use. He said that he has no children. ALLERGIES: No known allergies. MENTAL STATUS EXAM: The patient appears slightly older than stated age. Sad affect. In a depressed mood. Thought processes are mainly goal directed. The patient denies auditory or visual hallucinations or delusions. He denies any thoughts of suicide or homicide. ASSESSMENT: PRIMARY DIAGNOSIS: Major depression, moderate, recurrent, without psychotic features. TREATMENT PLAN: We will monitor the patient's behavior and condition closely. We will start the patient on Lexapro and will adjust the dose. Thanks to Dr. Sal and we will follow with you. JOB# [id number]
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
[2017-11-02] MEDS: Aspirin 81mg Chewable Tab PO SCH (08:58)
[2017-11-02] MEDS ORDERED: Escitalopram Oxalate 5 mg Tab PO SCH (09:00)
[2017-11-02] MEDS ORDERED: CRANBERRY FRUIT PO SCH (09:00)
[2017-11-02] MEDS: Pantoprazole 40 mg EC Tab PO SCH (09:02)
[2017-11-02] MEDS ORDERED: Probiotic Screen MC PRN (13:51)
[2017-11-02] MEDS: Escitalopram Oxalate 5 mg Tab PO SCH (14:48)
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
[2017-11-03] MEDS: Pantoprazole 40 mg EC Tab PO SCH (06:36)
[2017-11-03] MEDS: Aspirin 81mg Chewable Tab PO SCH (08:44)
[2017-11-03] MEDS: Escitalopram Oxalate 5 mg Tab PO SCH (08:46)
[2017-11-03] MEDS ORDERED: Hydrogel 3 oz Tube TP SCH (09:00)
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
--- NOTE | 2017-11-03 20:49 | Progress Notes ---
DATE: 11/03/2017 SUBJECTIVE: The patient was seen in his room, lying in the bed. The patient complains of episodic chest pain, but relieved with morphine, MS Contin, otherwise the patient appears to be comfortable, in no distress. The patient still has some ongoing chest wall pain, currently on antibiotics. OBJECTIVE: VITAL SIGNS: Temperature 97.3, heart rate of 68, blood pressure 112/74, respirations of 18 and 95% on room air. HEENT: Head is atraumatic and normocephalic. Eyes: Bilateral conjunctivae are clear. Bilateral pupils are equally round and reactive. NECK: Supple. No JVD. CARDIOVASCULAR: S1 and S2, without murmur. PULMONARY: Clear to auscultation. GASTROINTESTINAL: Soft and nontender without guarding. Positive bowel sounds. MUSCULOSKELETAL: No clubbing. No cyanosis noted. ASSESSMENT: 1. Chest wall cellulitis. 2. Depression. 3. Congestive heart failure. 4. Benign prostatic hypertrophy. PLAN: We will continue current antibiotic and will manage the pain medication, any pain management as needed. Treatment plans were discussed with the patient's nurse. Treatment plans were discussed with Dr. Sal. JOB# [id number]
--- NOTE | 2017-11-03 21:48 | Progress Notes ---
DATE: 11/03/2017 SUBJECTIVE: Chart reviewed and the patient interviewed. Also discussed the patient's condition with the staff and reviewed records and labs. The patient is still withdrawn and guarded. The patient also is still talking about chest pain, but is a kind of slightly confused while answering the question about chest pain and he was not able to locate where is the pain exactly. The patient also still seems to need attention and wants to talk. Also, continued to be depressed when talking about how he messed up his life and treatment for hepatitis C that was wrong. Otherwise, the patient is compliant with taking medications with no side effects. ASSESSMENT: The patient is still depressed and isolative. TREATMENT PLAN: Continue monitoring his behavior and his condition closely. Also, continue to work on his ineffective coping. [facility]# [id number]
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
[2017-11-04] MEDS: Pantoprazole 40 mg EC Tab PO SCH (06:38)
[2017-11-04] MEDS: Aspirin 81mg Chewable Tab PO SCH (09:01)
[2017-11-04] MEDS: Escitalopram Oxalate 5 mg Tab PO SCH (09:01)
--- NOTE | 2017-11-04 09:04 | General Progress Note ---
Subjective - Review of Systems Service Date: 11/04/17 Events since last encounter: bone scan possibility of osteo not able to do MRI - right shoulder metal prosthesis suggest wound debridement, patient able to sign consent?? Objective - Results Result Diagrams: 11/01/17 12:30 11/01/17 12:30 Recent Labs: Laboratory Last Values WBC 3.1 Th/cmm (4.8-10.8) L 11/01/17 12:30 RBC 3.52 Mil/cmm (4.30-5.70) L 11/01/17 12:30 Hgb 11.2 gm/dL (12-16) L 11/01/17 12:30 Hct 33.5 % (41.0-60) L 11/01/17 12:30 MCV 95.3 fl (80-99) 11/01/17 12:30 MCH 31.8 pg (26.0-30.0) H 11/01/17 12:30 MCHC Differential 33.4 pg (28.0-36.0) 11/01/17 12:30 RDW 16.8 % (11.5-20.0) 11/01/17 12:30 Plt Count 66 Th/cmm (150-400) L 11/01/17 12:30 MPV 8.1 fl 11/01/17 12:30 Neutrophils % 69.5 % (40.0-80.0) 11/01/17 12:30 Lymphocytes % 13.9 % (20.0-50.0) L 11/01/17 12:30 Monocytes % 8.5 % (2.0-10.0) 11/01/17 12:30 Eosinophils % 6.3 % (0.0-5.0) H 11/01/17 12:30 Basophils % 1.8 % (0.0-2.0) 11/01/17 12:30 Sodium 136 mEq/L (136-145) 11/01/17 12:30 Potassium 4.2 mEq/L (3.5-5.1) 11/01/17 12:30 Chloride 101 mEq/L (98-107) 11/01/17 12:30 Carbon Dioxide 31.4 mEq/L (21.0-31.0) H 11/01/17 12:30 Anion Gap 7.8 (7.0-16.0) 11/01/17 12:30 BUN 17 mg/dL (7-25) 11/01/17 12:30 Creatinine 0.6 mg/dL (0.7-1.3) L 11/01/17 12:30 Est GFR ( Amer) > 60.0 ml/min (>90) 11/01/17 12:30 Est GFR (Non-Af Amer) > 60.0 ml/min 11/01/17 12:30 BUN/Creatinine Ratio 28.3 11/01/17 12:30 Glucose 141 mg/dL (70-105) H 11/01/17 12:30 Whole Bld Lactic Acid 1.55 mmol/L (0.60-1.99) 11/01/17 12:30 Calcium 9.5 mg/dL (8.6-10.3) 11/01/17 12:30 B-Natriuretic Peptide 196.0 pg/mL (5.0-100.0) H 11/01/17 12:30 - Physical Exam Vitals and I&O: Vital Signs Temp 97.0 F 11/04/17 04:00 Pulse 72 11/04/17 04:00 Resp 17 11/04/17 04:00 BP 97/65 11/04/17 04:00 Pulse Ox 99 11/04/17 04:00 Intake & Output 11/03/17 11/04/17 11/04/17 18:59 06:59 18:59 Intake Total 900 410 Output Total 200 Balance 900 210 Weight (lbs) 72.575 kg 72.575 kg Intake: Intake, IV Amount 100 50 Piperacillin Sodium/ 100 50 Tazobact 3.375 gm In Sodium Chloride 0.9% 50 ml @ 100 mls/hr IV Q8H [facility] Rx#:[id number] Oral 800 360 Output: Urine 200 Other: # Voids 4 # Bowel Movements 2 0 Weight Source Bedscale Bedscale Active Medications: Current Medications Acetaminophen (Tylenol) 650 mg PO Q4H PRN PRN Reason: MILD PAIN Stop: 01/01/18 07:47 Acetaminophen (Tylenol Extra Strength) 1,000 mg PO Q8H PRN PRN Reason: MODERATE PAIN Stop: 01/01/18 07:47 Aspirin (Aspirin Chewable) 81 mg PO DAILY [facility] Stop: 01/01/18 08:59 Last Admin: 11/03/17 08:44 Dose: 81 mg Bisacodyl (Dulcolax 10 Mg Supp) 10 mg RC DAILY PRN PRN Reason: IF MOM INEFFECTIVE Stop: 01/01/18 07:47 Bumetanide (Bumex) 1 mg PO DAILY [facility] Stop: 01/01/18 08:59 Last Admin: 11/03/17 08:46 Dose: 1 mg Docusate Sodium (Colace) 100 mg PO DAILY [facility] Stop: 01/01/18 08:59 Last Admin: 11/03/17 08:44 Dose: 100 mg Escitalopram Oxalate (Lexapro) 5 mg PO DAILY [facility]; Protocol Stop: 01/01/18 08:59 Last Admin: 11/03/17 08:46 Dose: 5 mg Linezolid (Zyvox) 600 mg in 300 mls @ 300 mls/hr IV Q12HR [facility] Stop: 01/03/18 08:59 Ibuprofen (Motrin) 600 mg PO TID [facility] Stop: 12/31/17 20:59 Last Admin: 11/03/17 20:30 Dose: 600 mg Ibuprofen (Motrin) 600 mg PO TID PRN PRN Reason: Severe Pain Stop: 01/01/18 07:47 Loperamide HCl (Imodium) 4 mg PO Q6H PRN PRN Reason: Loose Stools Stop: 01/01/18 07:47 Magnesium Hydroxide (Milk Of Magnesia) 30 ml PO HS PRN PRN Reason: Constipation Stop: 01/01/18 07:47 Metoprolol Succinate (Toprol Xl) 25 mg PO DAILY [facility] Stop: 01/01/18 08:59 Last Admin: 11/03/17 08:44 Dose: 25 mg Miscellaneous (Probiotic Screen) 1 ea MC PRN PRN PRN Reason: PROTOCOL Stop: 01/01/18 13:50 Morphine Sulfate (Ms-Contin) 15 mg PO Q12H [facility] Stop: 01/01/18 07:59 Last Admin: 11/03/17 20:11 Dose: 15 mg Mupirocin (Bactroban Oint) 1 appl NS BID [facility] Stop: 11/07/17 17:01 Last Admin: 11/03/17 16:09 Dose: 1 appl Neomycin Sulfate (Neomycin) 500 mg PO Q6HR [facility] Stop: 01/01/18 11:59 Last Admin: 11/04/17 06:38 Dose: 500 mg Pantoprazole Sodium (Protonix) 40 mg PO QDAC [facility] Stop: 01/01/18 08:59 Last Admin: 11/04/17 06:38 Dose: 40 mg Sodium Phosphate (Fleet Enema) 135 ml RC Q48H PRN PRN Reason: IF DULCOLAX INEFFECTIVE Stop: 01/01/18 07:47 Spironolactone (Aldactone) 25 mg PO DAILY [facility] Stop: 01/01/18 08:59 Last Admin: 11/03/17 08:44 Dose: 25 mg Tamsulosin HCl (Flomax) 0.4 mg PO HS [facility] Stop: 01/01/18 20:59 Last Admin: 11/03/17 20:11 Dose: 0.4 mg Zolpidem Tartrate (Ambien) 5 mg PO HS PRN PRN Reason: Insomnia Stop: 12/31/17 19:31 Last Admin: 11/03/17 22:21 Dose: 5 mg Assessment/Plan - Problem List Patient Problems: All Active Problems FESTERING STERNAL WOUND WITH PURULENT DR (Acute)
[2017-11-04] MEDS: Linezolid 600mg/300mL 600 MG/300 ML BAG IV SCH ×4 (09:22→20:15)
--- NOTE | 2017-11-04 13:45 | General Progress Note ---
Subjective - Review of Systems Events since last encounter: awake possible wound debridement Objective - Results Result Diagrams: 11/01/17 12:30 11/01/17 12:30 Recent Labs: Laboratory Last Values WBC 3.1 Th/cmm (4.8-10.8) L 11/01/17 12:30 RBC 3.52 Mil/cmm (4.30-5.70) L 11/01/17 12:30 Hgb 11.2 gm/dL (12-16) L 11/01/17 12:30 Hct 33.5 % (41.0-60) L 11/01/17 12:30 MCV 95.3 fl (80-99) 11/01/17 12:30 MCH 31.8 pg (26.0-30.0) H 11/01/17 12:30 MCHC Differential 33.4 pg (28.0-36.0) 11/01/17 12:30 RDW 16.8 % (11.5-20.0) 11/01/17 12:30 Plt Count 66 Th/cmm (150-400) L 11/01/17 12:30 MPV 8.1 fl 11/01/17 12:30 Neutrophils % 69.5 % (40.0-80.0) 11/01/17 12:30 Lymphocytes % 13.9 % (20.0-50.0) L 11/01/17 12:30 Monocytes % 8.5 % (2.0-10.0) 11/01/17 12:30 Eosinophils % 6.3 % (0.0-5.0) H 11/01/17 12:30 Basophils % 1.8 % (0.0-2.0) 11/01/17 12:30 Sodium 136 mEq/L (136-145) 11/01/17 12:30 Potassium 4.2 mEq/L (3.5-5.1) 11/01/17 12:30 Chloride 101 mEq/L (98-107) 11/01/17 12:30 Carbon Dioxide 31.4 mEq/L (21.0-31.0) H 11/01/17 12:30 Anion Gap 7.8 (7.0-16.0) 11/01/17 12:30 BUN 17 mg/dL (7-25) 11/01/17 12:30 Creatinine 0.6 mg/dL (0.7-1.3) L 11/01/17 12:30 Est GFR ( Amer) > 60.0 ml/min (>90) 11/01/17 12:30 Est GFR (Non-Af Amer) > 60.0 ml/min 11/01/17 12:30 BUN/Creatinine Ratio 28.3 11/01/17 12:30 Glucose 141 mg/dL (70-105) H 11/01/17 12:30 Whole Bld Lactic Acid 1.55 mmol/L (0.60-1.99) 11/01/17 12:30 Calcium 9.5 mg/dL (8.6-10.3) 11/01/17 12:30 B-Natriuretic Peptide 196.0 pg/mL (5.0-100.0) H 11/01/17 12:30 - Physical Exam Vitals and I&O: Vital Signs Temp 97.5 F 11/04/17 12:25 Pulse 71 11/04/17 12:25 Resp 17 11/04/17 12:25 BP 110/67 11/04/17 12:25 Pulse Ox 98 11/04/17 12:25 Intake & Output 11/03/17 11/04/17 11/04/17 18:59 06:59 18:59 Intake Total 900 410 Output Total 200 Balance 900 210 Weight (lbs) 72.575 kg 72.575 kg Intake: Intake, IV Amount 100 50 Piperacillin Sodium/ 100 50 Tazobact 3.375 gm In Sodium Chloride 0.9% 50 ml @ 100 mls/hr IV Q8H [facility] Rx#:[id number] Oral 800 360 Output: Urine 200 Other: # Voids 4 # Bowel Movements 2 0 Weight Source Bedscale Bedscale Active Medications: Current Medications Acetaminophen (Tylenol) 650 mg PO Q4H PRN PRN Reason: MILD PAIN Stop: 01/01/18 07:47 Acetaminophen (Tylenol Extra Strength) 1,000 mg PO Q8H PRN PRN Reason: MODERATE PAIN Stop: 01/01/18 07:47 Aspirin (Aspirin Chewable) 81 mg PO DAILY [facility] Stop: 01/01/18 08:59 Last Admin: 11/04/17 09:01 Dose: 81 mg Bisacodyl (Dulcolax 10 Mg Supp) 10 mg RC DAILY PRN PRN Reason: IF MOM INEFFECTIVE Stop: 01/01/18 07:47 Bumetanide (Bumex) 1 mg PO DAILY [facility] Stop: 01/01/18 08:59 Last Admin: 11/04/17 09:01 Dose: 1 mg Docusate Sodium (Colace) 100 mg PO DAILY [facility] Stop: 01/01/18 08:59 Last Admin: 11/04/17 09:01 Dose: 100 mg Escitalopram Oxalate (Lexapro) 5 mg PO DAILY [facility]; Protocol Stop: 01/01/18 08:59 Last Admin: 11/04/17 09:01 Dose: 5 mg Linezolid (Zyvox) 600 mg in 300 mls @ 300 mls/hr IV Q12HR [facility] Stop: 01/03/18 08:59 Last Admin: 11/04/17 13:28 Dose: 300 mls/hr Ibuprofen (Motrin) 600 mg PO TID [facility] Stop: 12/31/17 20:59 Last Admin: 11/04/17 13:27 Dose: 600 mg Ibuprofen (Motrin) 600 mg PO TID PRN PRN Reason: Severe Pain Stop: 01/01/18 07:47 Loperamide HCl (Imodium) 4 mg PO Q6H PRN PRN Reason: Loose Stools Stop: 01/01/18 07:47 Magnesium Hydroxide (Milk Of Magnesia) 30 ml PO HS PRN PRN Reason: Constipation Stop: 01/01/18 07:47 Metoprolol Succinate (Toprol Xl) 25 mg PO DAILY [facility] Stop: 01/01/18 08:59 Last Admin: 11/04/17 09:01 Dose: 25 mg Miscellaneous (Probiotic Screen) 1 ea MC PRN PRN PRN Reason: PROTOCOL Stop: 01/01/18 13:50 Morphine Sulfate (Ms-Contin) 15 mg PO Q12H [facility] Stop: 01/01/18 07:59 Last Admin: 11/04/17 09:00 Dose: 15 mg Mupirocin (Bactroban Oint) 1 appl NS BID [facility] Stop: 11/07/17 17:01 Last Admin: 11/04/17 09:23 Dose: 1 appl Neomycin Sulfate (Neomycin) 500 mg PO Q6HR [facility] Stop: 01/01/18 11:59 Last Admin: 11/04/17 13:27 Dose: 500 mg Pantoprazole Sodium (Protonix) 40 mg PO QDAC [facility] Stop: 01/01/18 08:59 Last Admin: 11/04/17 06:38 Dose: 40 mg Sodium Phosphate (Fleet Enema) 135 ml RC Q48H PRN PRN Reason: IF DULCOLAX INEFFECTIVE Stop: 01/01/18 07:47 Spironolactone (Aldactone) 25 mg PO DAILY [facility] Stop: 01/01/18 08:59 Last Admin: 11/04/17 09:01 Dose: 25 mg Tamsulosin HCl (Flomax) 0.4 mg PO HS [facility] Stop: 01/01/18 20:59 Last Admin: 11/03/17 20:11 Dose: 0.4 mg Zolpidem Tartrate (Ambien) 5 mg PO HS PRN PRN Reason: Insomnia Stop: 12/31/17 19:31 Last Admin: 11/03/17 22:21 Dose: 5 mg General: No acute distress HEENT: Atraumatic Neck: Supple, JVD Cardiovascular: Regular rate, Normal S1 Lungs: Clear to auscultation Abdomen: Bowel sounds Assessment/Plan - Problem List Patient Problems: All Active Problems FESTERING STERNAL WOUND WITH PURULENT DR (Acute) - Assessment Assessment: Current Active Problems Problem Status Onset FESTERING STERNAL WOUND WITH PURULENT DR Acute HTN CHF PUD/GERD cirrhosis benign prostatic hypertrophy hepatitis C major depression - Plan Plan: id consult ivabx psych consult cpm
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
[2017-11-05 05:04] LABS: % BASOPHILS 0.9 % (0.0-2.0); % EOSINOPHILS 5.3 % (0.0-5.0); % LYMPHOCYTES 10.6 % (20.0-50.0); % MONOCYTES 9.9 % (2.0-10.0); % NEUTROPHILS 73.3 % (40.0-80.0); EOSINOPHILE ABSOLUTE 0.2 Th/cmm (0.1-0.4); HEMATOCRIT 33.6 % (41.0-60); HEMOGLOBIN 11.4 gm/dL (12-16); LYMPHOCYTE ABSOLUTE 0.4 Th/cmm (1.5-3.0); MEAN CORPUSCULAR HEMOGLOBIN 32.2 pg (26.0-30.0); MEAN CORPUSCULAR HGB CONC 33.9 pg (28.0-36.0); MEAN PLATELET VOLUME 8.7 fl; MONOCYTE ABSOLUTE 0.4 Th/cmm (0.3-1.0); NEUTROPHILE ABSOLUTE 3.2 Th/cmm (1.8-8.0); PLATELET COUNT 50 Th/cmm (150-400); RED BLOOD COUNT 3.54 Mil/cmm (4.30-5.70); WHITE BLOOD COUNT 4.2 Th/cmm (4.8-10.8)
[2017-11-05 05:17] LABS: INR 1.3 (0.5-1.4); PROTHROMBIN TIME (TEST) 13.7 SECONDS (9.5-11.5)
[2017-11-05 05:20] LABS: ALB/GLOB RATIO 0.9 (1.0-1.8); ALBUMIN 2.8 gm/dL (4.2-5.5); ALKALINE PHOSPHATASE 99 U/L (34-104); ANION GAP 7.4 (7.0-16.0); BILIRUBIN,TOTAL 1.3 mg/dL (0.3-1.0); BUN - UREA NITROGEN 16 mg/dL (7-25); CARBON DIOXIDE 28.2 mEq/L (21.0-31.0); CHLORIDE 104 mEq/L (98-107); CREATININE - SERUM 0.8 mg/dL (0.7-1.3); GFR AFRICAN-AMERICAN > 60.0 ml/min (>90); GFR NON AFRICAN-AMERICAN > 60.0 ml/min; GLUCOSE 114 mg/dL (70-105); POTASSIUM SERUM 3.6 mEq/L (3.5-5.1); SGOT 23 U/L (13-39); SGPT/ALT 15 U/L (7-52); SODIUM SERUM 136 mEq/L (136-145); TOTAL PROTEIN,SERUM 6.1 gm/dL (6.0-8.3)
[2017-11-05] MEDS: Pantoprazole 40 mg EC Tab PO SCH (06:30)
[2017-11-05] MEDS: Linezolid 600mg/300mL 600 MG/300 ML BAG IV SCH ×2 (08:29→20:06)
[2017-11-05] MEDS: Aspirin 81mg Chewable Tab PO SCH (08:45)
--- NOTE | 2017-11-05 08:53 | Progress Notes ---
DATE: 11/05/2017 SUBJECTIVE: Chart reviewed and the patient interviewed. Also discussed the patient's condition with the staff and reviewed records and labs. The patient is still withdrawn and still in a depressed mood. The patient also is still anxious. The patient also still seems to be depressed, but denies any intention to harm himself or others. Otherwise, the patient is compliant with taking his medications with no side effects of medications. ASSESSMENT: The patient is still depressed and still needs reassurance. TREATMENT PLAN: We will increase Lexapro to 10 mg every day. Also, continue to monitor his behavior and his condition and will continue supportive therapy for the patient. JOB# [id number]
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
[2017-11-05] MEDS: HYDROmorphone 1 mg/mL 1mL Syr IVP PRN (17:43)
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
[2017-11-06] MEDS ORDERED: HYDROmorphone 1 mg/mL 1mL Syr IVP PRN (01:00)
[2017-11-06] MEDS: Pantoprazole 40 mg EC Tab PO SCH (06:41)
[2017-11-06] MEDS: Linezolid 600mg/300mL 600 MG/300 ML BAG IV SCH ×2 (08:48→20:46)
[2017-11-06] MEDS: Aspirin 81mg Chewable Tab PO SCH (08:49)
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
[2017-11-06] MEDS: HYDROmorphone 1 mg/mL 1mL Syr IVP PRN ×4 (09:05→23:26)
--- NOTE | 2017-11-06 17:56 | General Progress Note ---
Subjective - Review of Systems Service Date: 11/06/17 Objective - Results Result Diagrams: 11/05/17 04:20 11/05/17 04:20 Recent Labs: Laboratory Last Values WBC 4.2 Th/cmm (4.8-10.8) L 11/05/17 04:20 RBC 3.54 Mil/cmm (4.30-5.70) L 11/05/17 04:20 Hgb 11.4 gm/dL (12-16) L 11/05/17 04:20 Hct 33.6 % (41.0-60) L 11/05/17 04:20 MCV 95.0 fl (80-99) 11/05/17 04:20 MCH 32.2 pg (26.0-30.0) H 11/05/17 04:20 MCHC Differential 33.9 pg (28.0-36.0) 11/05/17 04:20 RDW 16.0 % (11.5-20.0) 11/05/17 04:20 Plt Count 50 Th/cmm (150-400) L 11/05/17 04:20 MPV 8.7 fl 11/05/17 04:20 Neutrophils % 73.3 % (40.0-80.0) 11/05/17 04:20 Lymphocytes % 10.6 % (20.0-50.0) L 11/05/17 04:20 Monocytes % 9.9 % (2.0-10.0) 11/05/17 04:20 Eosinophils % 5.3 % (0.0-5.0) H 11/05/17 04:20 Basophils % 0.9 % (0.0-2.0) 11/05/17 04:20 PT 13.7 SECONDS (9.5-11.5) H 11/05/17 04:20 INR 1.30 (0.5-1.4) 11/05/17 04:20 PTT (Actin FS) 31.6 SECONDS (26.0-38.0) 11/05/17 04:20 Sodium 136 mEq/L (136-145) 11/05/17 04:20 Potassium 3.6 mEq/L (3.5-5.1) 11/05/17 04:20 Chloride 104 mEq/L (98-107) 11/05/17 04:20 Carbon Dioxide 28.2 mEq/L (21.0-31.0) 11/05/17 04:20 Anion Gap 7.4 (7.0-16.0) 11/05/17 04:20 BUN 16 mg/dL (7-25) 11/05/17 04:20 Creatinine 0.8 mg/dL (0.7-1.3) 11/05/17 04:20 Est GFR ( Amer) > 60.0 ml/min (>90) 11/05/17 04:20 Est GFR (Non-Af Amer) > 60.0 ml/min 11/05/17 04:20 BUN/Creatinine Ratio 20.0 11/05/17 04:20 Glucose 114 mg/dL (70-105) H 11/05/17 04:20 Whole Bld Lactic Acid 1.55 mmol/L (0.60-1.99) 11/01/17 12:30 Calcium 9.0 mg/dL (8.6-10.3) 11/05/17 04:20 Total Bilirubin 1.3 mg/dL (0.3-1.0) H 11/05/17 04:20 AST 23 U/L (13-39) 11/05/17 04:20 ALT 15 U/L (7-52) 11/05/17 04:20 Alkaline Phosphatase 99 U/L (34-104) 11/05/17 04:20 B-Natriuretic Peptide 196.0 pg/mL (5.0-100.0) H 11/01/17 12:30 Total Protein 6.1 gm/dL (6.0-8.3) 11/05/17 04:20 Albumin 2.8 gm/dL (4.2-5.5) L 11/05/17 04:20 Globulin 3.3 gm/dL 11/05/17 04:20 Albumin/Globulin Ratio 0.9 (1.0-1.8) L 11/05/17 04:20 Blood Type AB POSITIVE 11/06/17 09:45 - Physical Exam Vitals and I&O: Vital Signs Temp 96.4 F 11/06/17 15:29 Pulse 68 11/06/17 15:29 Resp 18 11/06/17 15:29 BP 94/53 11/06/17 15:29 Pulse Ox 98 11/06/17 15:29 Intake & Output 11/05/17 11/06/17 11/06/17 18:59 06:59 18:59 Intake Total 300 920 300 Output Total 201 Balance 300 719 300 Weight (lbs) 72.575 kg Intake: Intake, IV Amount 300 300 300 Linezolid 600mg/300mL 600 300 300 300 mg In 300 ml @ 300 mls/ hr IV Q12HR [facility] Rx#: [id number] Oral 620 Output: Urine 200 Stool 1 Other: # Voids 1 Weight Source Bedscale Active Medications: Current Medications Acetaminophen (Tylenol) 650 mg PO Q4H PRN PRN Reason: MILD PAIN Stop: 01/01/18 07:47 Acetaminophen (Tylenol Extra Strength) 1,000 mg PO Q8H PRN PRN Reason: MODERATE PAIN Stop: 01/01/18 07:47 Aspirin (Aspirin Chewable) 81 mg PO DAILY [facility] Stop: 01/01/18 08:59 Last Admin: 11/06/17 08:49 Dose: 81 mg Bisacodyl (Dulcolax 10 Mg Supp) 10 mg RC DAILY PRN PRN Reason: IF MOM INEFFECTIVE Stop: 01/01/18 07:47 Bumetanide (Bumex) 1 mg PO DAILY [facility] Stop: 01/01/18 08:59 Last Admin: 11/06/17 08:50 Dose: 1 mg Docusate Sodium (Colace) 100 mg PO DAILY [facility] Stop: 01/01/18 08:59 Last Admin: 11/06/17 08:49 Dose: 100 mg Escitalopram Oxalate (Lexapro) 10 mg PO DAILY [facility]; Protocol Stop: 01/04/18 08:59 Last Admin: 11/06/17 08:49 Dose: 10 mg Hydromorphone HCl (Dilaudid) 1 mg IVP Q4HR PRN PRN Reason: Pain (Severe); Breakthrough Pa Stop: 01/04/18 00:55 Last Admin: 11/06/17 13:45 Dose: 1 mg Linezolid (Zyvox) 600 mg in 300 mls @ 300 mls/hr IV Q12HR [facility] Stop: 01/03/18 08:59 Last Infusion: 11/06/17 09:40 Dose: Infused Ibuprofen (Motrin) 600 mg PO TID [facility] Stop: 12/31/17 20:59 Last Admin: 11/06/17 13:40 Dose: 600 mg Ibuprofen (Motrin) 600 mg PO TID PRN PRN Reason: Severe Pain Stop: 01/01/18 07:47 Last Admin: 11/06/17 00:30 Dose: 600 mg Loperamide HCl (Imodium) 4 mg PO Q6H PRN PRN Reason: Loose Stools Stop: 01/01/18 07:47 Magnesium Hydroxide (Milk Of Magnesia) 30 ml PO HS PRN PRN Reason: Constipation Stop: 01/01/18 07:47 Metoprolol Succinate (Toprol Xl) 25 mg PO DAILY [facility] Stop: 01/01/18 08:59 Last Admin: 11/06/17 08:51 Dose: 25 mg Miscellaneous (Probiotic Screen) 1 ea MC PRN PRN PRN Reason: PROTOCOL Stop: 01/01/18 13:50 Morphine Sulfate (Ms-Contin) 15 mg PO Q12H [facility] Stop: 01/01/18 07:59 Last Admin: 11/06/17 08:49 Dose: 15 mg Mupirocin (Bactroban Oint) 1 appl NS BID [facility] Stop: 11/07/17 17:01 Last Admin: 11/06/17 16:53 Dose: 1 appl Neomycin Sulfate (Neomycin) 500 mg PO Q6HR [facility] Stop: 01/01/18 11:59 Last Admin: 11/06/17 17:26 Dose: 500 mg Pantoprazole Sodium (Protonix) 40 mg PO QDAC [facility] Stop: 01/01/18 08:59 Last Admin: 11/06/17 06:41 Dose: 40 mg Sodium Phosphate (Fleet Enema) 135 ml RC Q48H PRN PRN Reason: IF DULCOLAX INEFFECTIVE Stop: 01/01/18 07:47 Spironolactone (Aldactone) 25 mg PO DAILY [facility] Stop: 01/01/18 08:59 Last Admin: 11/06/17 08:50 Dose: 25 mg Tamsulosin HCl (Flomax) 0.4 mg PO HS [facility] Stop: 01/01/18 20:59 Last Admin: 11/05/17 20:06 Dose: 0.4 mg Zolpidem Tartrate (Ambien) 5 mg PO HS PRN PRN Reason: Insomnia Stop: 12/31/17 19:31 Last Admin: 11/06/17 00:31 Dose: 5 mg General: No acute distress HEENT: Atraumatic Neck: Supple, JVD Cardiovascular: Regular rate, Normal S1 Lungs: Clear to auscultation Abdomen: Bowel sounds Assessment/Plan - Problem List Patient Problems: All Active Problems FESTERING STERNAL WOUND WITH PURULENT DR (Acute) - Assessment Assessment: * Sternal wound * chronic thrombocytopenia * splenomegaly/ hepatitis c transfuse plt during debridment procedure Nutritional Asmnt/Malnutr-PDOC - Dietary Evaluation Malnutrition Findings (Please click <Entered> for more info): Nutritional Asmnt/Malnutrition Start: 11/06/17 16: 10 Text: Status: Complete Freq: Protocol: Document 11/06/17 16:23 [email or web address] (Rec: 11/06/17 16:40 [email or web address] [email or web address]) Nutritional Asmnt/Malnutrition Patient General Information Nutritional Screening Low Risk Consult Diagnosis wound incision infection to sterum Pertinent Medical Hx/Surgical Hx HTN, CHF, PUD, GERD, cell wall cellulitis, s/p PNA, cirrhosis, BPH, hep C, major depression Subjective Information Pt seen sleeping in bed at time of visit. Per nurse, pt will have debridement tommorrow. Per EMR, PO intake 50-75%. Current Diet Order/ Nutrition Support regular Pertinent Medications colace, protonix Pertinent Labs 11/05 glucose 114 Nutritional Hx/Data Height 1.73 m Height (Calculated Centimeters) 172.7 Current Weight (lbs) 72.575 kg Weight (Calculated Kilograms) 72.6 Weight (Calculated Grams) 11110.8 [place] Body Weight 154 Body Mass Index (BMI) 24.3 Weight Status Approriate GI Symptoms GI Symptoms None Last BM 11/04 x 2 Difficult in: None Skin Integrity/Comment: non-healing incision to superior/inferior chest Current %PO Fair (50-74%) Estimated Nutritional Goals BEE in Kcals: Using Current wt Calories/Kcals/Kg 25-30 Kcals Calculated 2702-9300 Protein: Using Current wt Protein g/k.2 Protein Calculated 88 Fluid: ml 1825-2190ml (1ml/kcal) Nutritional Problem 1. Problem Problem increased nutrition needs Etiology impaired skin integrity Signs/Symptoms: non-healing incision to chest Malnutrition Alert Is there a minimum of two criteria No selected? Query Text:Check all the applicable criteria. A minimum of two criteria are recommended for diagnosis of either severe or non-severe malnutrition. Malnutrition Related to Morbid Obesity Malnutrition related to morbid obesity No Intervention/Recommendation Comments 1. Continue with current diet as ordered. Consider Brennan BID to help wound healing. If PO intake <75%, will consider adding Ensure Enlive daily. 2. Monitor PO intake, wt, labs and skin integrity 3. F/U as high risk in 2-3 days, 11/08-11/09 Expected Outcomes/Goals Expected Outcomes/Goals 1. PO intake to meet at least 75% of nutritional needs. 2. Wt stability, skin integrety to improve, labs to approach WNL.
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
[2017-11-07] MEDS: HYDROmorphone 1 mg/mL 1mL Syr IVP PRN ×4 (04:31→21:07)
[2017-11-07 06:15] LABS: % BASOPHILS 0.8 % (0.0-2.0); % EOSINOPHILS 5.7 % (0.0-5.0); % LYMPHOCYTES 12.5 % (20.0-50.0); % MONOCYTES 11.6 % (2.0-10.0); % NEUTROPHILS 69.4 % (40.0-80.0); EOSINOPHILE ABSOLUTE 0.2 Th/cmm (0.1-0.4); HEMATOCRIT 32.2 % (41.0-60); HEMOGLOBIN 10.7 gm/dL (12-16); LYMPHOCYTE ABSOLUTE 0.4 Th/cmm (1.5-3.0); MEAN CELL VOLUME 95.3 fl (80-99); MEAN CORPUSCULAR HEMOGLOBIN 31.7 pg (26.0-30.0); MEAN CORPUSCULAR HGB CONC 33.2 pg (28.0-36.0); MEAN PLATELET VOLUME 8.9 fl; MONOCYTE ABSOLUTE 0.4 Th/cmm (0.3-1.0); NEUTROPHILE ABSOLUTE 2.5 Th/cmm (1.8-8.0); PLATELET COUNT 44 Th/cmm (150-400); RED BLOOD COUNT 3.38 Mil/cmm (4.30-5.70); RED CELL DISTRIBUTION WIDTH 15.7 % (11.5-20.0)
[2017-11-07 06:41] LABS: WHITE BLOOD COUNT 3.5 Th/cmm (4.8-10.8)
[2017-11-07] MEDS ORDERED: fentaNYL Citrate 100 mcg/2mL Vial ONE (08:07)
[2017-11-07] MEDS: Pantoprazole 40 mg EC Tab PO SCH (08:10)
--- NOTE | 2017-11-07 08:17 | Progress Notes ---
DATE: SUBJECTIVE: Chart reviewed and the patient interviewed. Also discussed the patient's condition with the staff and reviewed records and labs. The patient is anxious because he is going to have surgery today. He said that he is in pain, but he slept better last night. The patient also is cooperative and compliant with taking his medications. The patient denies any thoughts of suicide or homicide. The patient also is cooperative with his treatment. [facility]# [id number]
[2017-11-07] MEDS ORDERED: INSULIN HUMAN ISOPHANE (NPH) 100 UNITS/ML SUBQ ONE (08:30)
[2017-11-07] MEDS: Aspirin 81mg Chewable Tab PO SCH (09:58)
[2017-11-07] MEDS: Linezolid 600mg/300mL 600 MG/300 ML BAG IV SCH (10:03)
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
--- NOTE | 2017-11-07 10:30 | General Progress Note ---
Subjective - Review of Systems Service Date: 11/07/17 Objective - Results Result Diagrams: 11/07/17 05:30 11/05/17 04:20 Recent Labs: Laboratory Last Values WBC 3.5 Th/cmm (4.8-10.8) L 11/07/17 05:30 RBC 3.38 Mil/cmm (4.30-5.70) L 11/07/17 05:30 Hgb 10.7 gm/dL (12-16) L 11/07/17 05:30 Hct 32.2 % (41.0-60) L 11/07/17 05:30 MCV 95.3 fl (80-99) 11/07/17 05:30 MCH 31.7 pg (26.0-30.0) H 11/07/17 05:30 MCHC Differential 33.2 pg (28.0-36.0) 11/07/17 05:30 RDW 15.7 % (11.5-20.0) 11/07/17 05:30 Plt Count 44 Th/cmm (150-400) L 11/07/17 05:30 MPV 8.9 fl 11/07/17 05:30 Neutrophils % 69.4 % (40.0-80.0) 11/07/17 05:30 Lymphocytes % 12.5 % (20.0-50.0) L 11/07/17 05:30 Monocytes % 11.6 % (2.0-10.0) H 11/07/17 05:30 Eosinophils % 5.7 % (0.0-5.0) H 11/07/17 05:30 Basophils % 0.8 % (0.0-2.0) 11/07/17 05:30 PT 13.7 SECONDS (9.5-11.5) H 11/05/17 04:20 INR 1.30 (0.5-1.4) 11/05/17 04:20 PTT (Actin FS) 31.6 SECONDS (26.0-38.0) 11/05/17 04:20 Sodium 136 mEq/L (136-145) 11/05/17 04:20 Potassium 3.6 mEq/L (3.5-5.1) 11/05/17 04:20 Chloride 104 mEq/L (98-107) 11/05/17 04:20 Carbon Dioxide 28.2 mEq/L (21.0-31.0) 11/05/17 04:20 Anion Gap 7.4 (7.0-16.0) 11/05/17 04:20 BUN 16 mg/dL (7-25) 11/05/17 04:20 Creatinine 0.8 mg/dL (0.7-1.3) 11/05/17 04:20 Est GFR ( Amer) > 60.0 ml/min (>90) 11/05/17 04:20 Est GFR (Non-Af Amer) > 60.0 ml/min 11/05/17 04:20 BUN/Creatinine Ratio 20.0 11/05/17 04:20 Glucose 114 mg/dL (70-105) H 11/05/17 04:20 Whole Bld Lactic Acid 1.55 mmol/L (0.60-1.99) 11/01/17 12:30 Calcium 9.0 mg/dL (8.6-10.3) 11/05/17 04:20 Total Bilirubin 1.3 mg/dL (0.3-1.0) H 11/05/17 04:20 AST 23 U/L (13-39) 11/05/17 04:20 ALT 15 U/L (7-52) 11/05/17 04:20 Alkaline Phosphatase 99 U/L (34-104) 11/05/17 04:20 B-Natriuretic Peptide 196.0 pg/mL (5.0-100.0) H 11/01/17 12:30 Total Protein 6.1 gm/dL (6.0-8.3) 11/05/17 04:20 Albumin 2.8 gm/dL (4.2-5.5) L 11/05/17 04:20 Globulin 3.3 gm/dL 11/05/17 04:20 Albumin/Globulin Ratio 0.9 (1.0-1.8) L 11/05/17 04:20 Blood Type AB POSITIVE 11/06/17 09:45 - Physical Exam Vitals and I&O: Vital Signs Temp 99 F 11/07/17 07:50 Pulse 74 11/07/17 09:59 Resp 16 11/07/17 07:50 BP 110/62 11/07/17 09:59 Pulse Ox 97 11/07/17 07:50 Intake & Output 11/06/17 11/07/17 11/07/17 18:59 06:59 18:59 Intake Total 2100 300 850 Balance 2100 300 850 Weight (lbs) 72.575 kg 72.575 kg Intake: Intake, IV Amount 300 300 Linezolid 600mg/300mL 600 300 300 mg In 300 ml @ 300 mls/ hr IV Q12HR [facility] Rx#: [id number] Oral 1800 500 Blood Product 350 Other: # Voids 4 5 # Bowel Movements 2 2 Weight Source Bedscale Bedscale Active Medications: Current Medications Acetaminophen (Tylenol) 650 mg PO Q4H PRN PRN Reason: MILD PAIN Stop: 01/01/18 07:47 Acetaminophen (Tylenol Extra Strength) 1,000 mg PO Q8H PRN PRN Reason: MODERATE PAIN Stop: 01/01/18 07:47 Aspirin (Aspirin Chewable) 81 mg PO DAILY [facility] Stop: 01/01/18 08:59 Last Admin: 11/07/17 09:58 Dose: 81 mg Bisacodyl (Dulcolax 10 Mg Supp) 10 mg RC DAILY PRN PRN Reason: IF MOM INEFFECTIVE Stop: 01/01/18 07:47 Bumetanide (Bumex) 1 mg PO DAILY [facility] Stop: 01/01/18 08:59 Last Admin: 11/07/17 09:58 Dose: 1 mg Docusate Sodium (Colace) 100 mg PO DAILY [facility] Stop: 01/01/18 08:59 Last Admin: 11/07/17 09:58 Dose: Not Given Escitalopram Oxalate (Lexapro) 10 mg PO DAILY [facility]; Protocol Stop: 01/04/18 08:59 Last Admin: 11/07/17 09:58 Dose: 10 mg Hydromorphone HCl (Dilaudid) 1 mg IVP Q4HR PRN PRN Reason: Pain (Severe); Breakthrough Pa Stop: 01/04/18 00:55 Last Admin: 11/07/17 09:53 Dose: 1 mg Linezolid (Zyvox) 600 mg in 300 mls @ 300 mls/hr IV Q12HR [facility] Stop: 01/03/18 08:59 Last Admin: 11/07/17 10:03 Dose: 300 mls/hr Ibuprofen (Motrin) 600 mg PO TID [facility] Stop: 12/31/17 20:59 Last Admin: 11/07/17 09:57 Dose: 600 mg Ibuprofen (Motrin) 600 mg PO TID PRN PRN Reason: Severe Pain Stop: 01/01/18 07:47 Last Admin: 11/06/17 00:30 Dose: 600 mg Loperamide HCl (Imodium) 4 mg PO Q6H PRN PRN Reason: Loose Stools Stop: 01/01/18 07:47 Last Admin: 11/07/17 09:56 Dose: 4 mg Magnesium Hydroxide (Milk Of Magnesia) 30 ml PO HS PRN PRN Reason: Constipation Stop: 01/01/18 07:47 Metoprolol Succinate (Toprol Xl) 25 mg PO DAILY [facility] Stop: 01/01/18 08:59 Last Admin: 11/07/17 09:59 Dose: Not Given Miscellaneous (Probiotic Screen) 1 ea MC PRN PRN PRN Reason: PROTOCOL Stop: 01/01/18 13:50 Morphine Sulfate (Ms-Contin) 15 mg PO Q12H [facility] Stop: 01/01/18 07:59 Last Admin: 11/07/17 08:11 Dose: Not Given Mupirocin (Bactroban Oint) 1 appl NS BID [facility] Stop: 11/07/17 17:01 Last Admin: 11/07/17 10:03 Dose: 1 appl Neomycin Sulfate (Neomycin) 500 mg PO Q6HR [facility] Stop: 01/01/18 11:59 Last Admin: 11/07/17 06:03 Dose: Not Given Pantoprazole Sodium (Protonix) 40 mg PO QDAC [facility] Stop: 01/01/18 08:59 Last Admin: 11/07/17 08:10 Dose: Not Given Sodium Phosphate (Fleet Enema) 135 ml RC Q48H PRN PRN Reason: IF DULCOLAX INEFFECTIVE Stop: 01/01/18 07:47 Spironolactone (Aldactone) 25 mg PO DAILY [facility] Stop: 01/01/18 08:59 Last Admin: 11/07/17 09:57 Dose: 25 mg Tamsulosin HCl (Flomax) 0.4 mg PO HS [facility] Stop: 01/01/18 20:59 Last Admin: 11/06/17 20:38 Dose: 0.4 mg Zolpidem Tartrate (Ambien) 5 mg PO HS PRN PRN Reason: Insomnia Stop: 12/31/17 19:31 Last Admin: 11/06/17 20:40 Dose: 5 mg General: No acute distress HEENT: Atraumatic Neck: Supple, JVD Cardiovascular: Regular rate, Normal S1 Lungs: Clear to auscultation Abdomen: Bowel sounds Assessment/Plan - Problem List Patient Problems: All Active Problems FESTERING STERNAL WOUND WITH PURULENT DR (Acute) - Assessment Assessment: * Sternal wound * chronic thrombocytopenia * splenomegaly/ hepatitis c transfuse plt during debridment procedure 11/07: s/p debridment of sternal wound. ofelia Jeffries. there is wire in the sternum from previous surgery Nutritional Asmnt/Malnutr-PDOC - Dietary Evaluation Malnutrition Findings (Please click <Entered> for more info): Nutritional Asmnt/Malnutrition Start: 11/06/17 16: 10 Text: Status: Complete Freq: Protocol: Document 11/06/17 16:23 LCHENG (Rec: 11/06/17 16:40 LCHENG [email or web address]) Nutritional Asmnt/Malnutrition Patient General Information Nutritional Screening Low Risk Consult Diagnosis wound incision infection to sterum Pertinent Medical Hx/Surgical Hx HTN, CHF, PUD, GERD, cell wall cellulitis, s/p PNA, cirrhosis, BPH, hep C, major depression Subjective Information Pt seen sleeping in bed at time of visit. Per nurse, pt will have debridement tommorrow. Per EMR, PO intake 50-75%. pt is on linezolid noted. Not able to provide food-drug interaction at this time d/t pt not available. Pt is now provided with regular diet, no interaction with linezolid at this time. Will attempt to provide education on next visit. Current Diet Order/ Nutrition Support regular Pertinent Medications linezolid, colace, protonix Pertinent Labs 11/05 glucose 114 Nutritional Hx/Data Height 1.73 m Height (Calculated Centimeters) 172.7 Current Weight (lbs) 72.575 kg Weight (Calculated Kilograms) 72.6 Weight (Calculated Grams) 88018.8 [place] Body Weight 154 Body Mass Index (BMI) 24.3 Weight Status Approriate GI Symptoms GI Symptoms None Last BM 11/04 x 2 Difficult in: None Skin Integrity/Comment: non-healing incision to superior/inferior chest Current %PO Fair (50-74%) Estimated Nutritional Goals BEE in Kcals: Using Current wt Calories/Kcals/Kg 25-30 Kcals Calculated 4211-8899 Protein: Using Current wt Protein g/k.2 Protein Calculated 88 Fluid: ml 1825-2190ml (1ml/kcal) Nutritional Problem 1. Problem Problem increased nutrition needs Etiology impaired skin integrity Signs/Symptoms: non-healing incision to chest Malnutrition Alert Is there a minimum of two criteria No selected? Query Text:Check all the applicable criteria. A minimum of two criteria are recommended for diagnosis of either severe or non-severe malnutrition. Malnutrition Related to Morbid Obesity Malnutrition related to morbid obesity No Intervention/Recommendation Comments 1. Continue with current diet as ordered. Consider Brennan BID to help wound healing. If PO intake <75%, will consider adding Ensure Enlive daily. 2. Monitor PO intake, wt, labs and skin integrity 3. F/U as high risk in 2-3 days, 11/08-11/09 Expected Outcomes/Goals Expected Outcomes/Goals 1. PO intake to meet at least 75% of nutritional needs. 2. Wt stability, skin integrety to improve, labs to approach WNL.
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
--- NOTE | 2017-11-07 15:28 | General Progress Note ---
Subjective - Review of Systems Events since last encounter: s/p debridement of the wound no fever pain controlled Objective - Results Result Diagrams: 11/07/17 05:30 11/05/17 04:20 Recent Labs: Laboratory Last Values WBC 3.5 Th/cmm (4.8-10.8) L 11/07/17 05:30 RBC 3.38 Mil/cmm (4.30-5.70) L 11/07/17 05:30 Hgb 10.7 gm/dL (12-16) L 11/07/17 05:30 Hct 32.2 % (41.0-60) L 11/07/17 05:30 MCV 95.3 fl (80-99) 11/07/17 05:30 MCH 31.7 pg (26.0-30.0) H 11/07/17 05:30 MCHC Differential 33.2 pg (28.0-36.0) 11/07/17 05:30 RDW 15.7 % (11.5-20.0) 11/07/17 05:30 Plt Count 44 Th/cmm (150-400) L 11/07/17 05:30 MPV 8.9 fl 11/07/17 05:30 Neutrophils % 69.4 % (40.0-80.0) 11/07/17 05:30 Lymphocytes % 12.5 % (20.0-50.0) L 11/07/17 05:30 Monocytes % 11.6 % (2.0-10.0) H 11/07/17 05:30 Eosinophils % 5.7 % (0.0-5.0) H 11/07/17 05:30 Basophils % 0.8 % (0.0-2.0) 11/07/17 05:30 PT 13.7 SECONDS (9.5-11.5) H 11/05/17 04:20 INR 1.30 (0.5-1.4) 11/05/17 04:20 PTT (Actin FS) 31.6 SECONDS (26.0-38.0) 11/05/17 04:20 Sodium 136 mEq/L (136-145) 11/05/17 04:20 Potassium 3.6 mEq/L (3.5-5.1) 11/05/17 04:20 Chloride 104 mEq/L (98-107) 11/05/17 04:20 Carbon Dioxide 28.2 mEq/L (21.0-31.0) 11/05/17 04:20 Anion Gap 7.4 (7.0-16.0) 11/05/17 04:20 BUN 16 mg/dL (7-25) 11/05/17 04:20 Creatinine 0.8 mg/dL (0.7-1.3) 11/05/17 04:20 Est GFR ( Amer) > 60.0 ml/min (>90) 11/05/17 04:20 Est GFR (Non-Af Amer) > 60.0 ml/min 11/05/17 04:20 BUN/Creatinine Ratio 20.0 11/05/17 04:20 Glucose 114 mg/dL (70-105) H 11/05/17 04:20 Whole Bld Lactic Acid 1.55 mmol/L (0.60-1.99) 11/01/17 12:30 Calcium 9.0 mg/dL (8.6-10.3) 11/05/17 04:20 Total Bilirubin 1.3 mg/dL (0.3-1.0) H 11/05/17 04:20 AST 23 U/L (13-39) 11/05/17 04:20 ALT 15 U/L (7-52) 11/05/17 04:20 Alkaline Phosphatase 99 U/L (34-104) 11/05/17 04:20 B-Natriuretic Peptide 196.0 pg/mL (5.0-100.0) H 11/01/17 12:30 Total Protein 6.1 gm/dL (6.0-8.3) 11/05/17 04:20 Albumin 2.8 gm/dL (4.2-5.5) L 11/05/17 04:20 Globulin 3.3 gm/dL 11/05/17 04:20 Albumin/Globulin Ratio 0.9 (1.0-1.8) L 11/05/17 04:20 Blood Type AB POSITIVE 11/06/17 09:45 - Physical Exam Vitals and I&O: Vital Signs Temp 97.8 F 11/07/17 11:37 Pulse 77 11/07/17 11:37 Resp 19 11/07/17 11:37 BP 110/62 11/07/17 11:37 Pulse Ox 94 11/07/17 11:37 Intake & Output 11/06/17 11/07/17 11/07/17 18:59 06:59 18:59 Intake Total 2100 300 1150 Balance 2100 300 1150 Weight (lbs) 72.575 kg 72.575 kg Intake: Intake, IV Amount 300 300 300 Linezolid 600mg/300mL 600 300 300 300 mg In 300 ml @ 300 mls/ hr IV Q12HR [facility] Rx#: [id number] Oral 1800 500 Blood Product 350 Other: # Voids 4 5 # Bowel Movements 2 2 Weight Source Bedscale Bedscale Active Medications: Current Medications Acetaminophen (Tylenol) 650 mg PO Q4H PRN PRN Reason: MILD PAIN Stop: 01/01/18 07:47 Acetaminophen (Tylenol Extra Strength) 1,000 mg PO Q8H PRN PRN Reason: MODERATE PAIN Stop: 01/01/18 07:47 Aspirin (Aspirin Chewable) 81 mg PO DAILY [facility] Stop: 01/01/18 08:59 Last Admin: 11/07/17 09:58 Dose: 81 mg Bisacodyl (Dulcolax 10 Mg Supp) 10 mg RC DAILY PRN PRN Reason: IF MOM INEFFECTIVE Stop: 01/01/18 07:47 Bumetanide (Bumex) 1 mg PO DAILY [facility] Stop: 01/01/18 08:59 Last Admin: 11/07/17 09:58 Dose: 1 mg Docusate Sodium (Colace) 100 mg PO DAILY [facility] Stop: 01/01/18 08:59 Last Admin: 11/07/17 09:58 Dose: Not Given Escitalopram Oxalate (Lexapro) 10 mg PO DAILY [facility]; Protocol Stop: 01/04/18 08:59 Last Admin: 11/07/17 09:58 Dose: 10 mg Hydromorphone HCl (Dilaudid) 1 mg IVP Q4HR PRN PRN Reason: Pain (Severe); Breakthrough Pa Stop: 01/04/18 00:55 Last Admin: 11/07/17 14:59 Dose: 1 mg Daptomycin 450 mg/ Sodium (Chloride) 100 mls @ 100 mls/hr IV Q24H [facility] Stop: 01/06/18 15:59 Cefazolin Sodium 2 gm/ Sodium (Chloride) 100 mls @ 100 mls/hr IV Q8H [facility] Stop: 01/06/18 14:59 Ibuprofen (Motrin) 600 mg PO TID [facility] Stop: 12/31/17 20:59 Last Admin: 11/07/17 15:00 Dose: 600 mg Ibuprofen (Motrin) 600 mg PO TID PRN PRN Reason: Severe Pain Stop: 01/01/18 07:47 Last Admin: 11/06/17 00:30 Dose: 600 mg Loperamide HCl (Imodium) 4 mg PO Q6H PRN PRN Reason: Loose Stools Stop: 01/01/18 07:47 Last Admin: 11/07/17 09:56 Dose: 4 mg Magnesium Hydroxide (Milk Of Magnesia) 30 ml PO HS PRN PRN Reason: Constipation Stop: 01/01/18 07:47 Metoprolol Succinate (Toprol Xl) 25 mg PO DAILY [facility] Stop: 01/01/18 08:59 Last Admin: 11/07/17 09:59 Dose: Not Given Miscellaneous (Probiotic Screen) 1 ea MC PRN PRN PRN Reason: PROTOCOL Stop: 01/01/18 13:50 Morphine Sulfate (Ms-Contin) 15 mg PO Q12H [facility] Stop: 01/01/18 07:59 Last Admin: 11/07/17 08:11 Dose: Not Given Mupirocin (Bactroban Oint) 1 appl NS BID [facility] Stop: 11/07/17 17:01 Last Admin: 11/07/17 10:03 Dose: 1 appl Neomycin Sulfate (Neomycin) 500 mg PO Q6HR [facility] Stop: 01/01/18 11:59 Last Admin: 11/07/17 11:51 Dose: 500 mg Pantoprazole Sodium (Protonix) 40 mg PO QDAC [facility] Stop: 01/01/18 08:59 Last Admin: 11/07/17 08:10 Dose: Not Given Sodium Phosphate (Fleet Enema) 135 ml RC Q48H PRN PRN Reason: IF DULCOLAX INEFFECTIVE Stop: 01/01/18 07:47 Spironolactone (Aldactone) 25 mg PO DAILY [facility] Stop: 01/01/18 08:59 Last Admin: 11/07/17 09:57 Dose: 25 mg Tamsulosin HCl (Flomax) 0.4 mg PO HS [facility] Stop: 01/01/18 20:59 Last Admin: 11/06/17 20:38 Dose: 0.4 mg Zolpidem Tartrate (Ambien) 5 mg PO HS PRN PRN Reason: Insomnia Stop: 12/31/17 19:31 Last Admin: 11/06/17 20:40 Dose: 5 mg General: No acute distress HEENT: Atraumatic Neck: Supple, JVD Cardiovascular: Regular rate, Normal S1 Lungs: Clear to auscultation Abdomen: Bowel sounds - Procedures Procedures: Procedures Procedure Code Date EXCISION OF CHEST SUBCU/FASCIA, OPEN APPROACH [id number] 11/01/17 Assessment/Plan - Problem List Patient Problems: All Active Problems FESTERING STERNAL WOUND WITH PURULENT DR (Acute) - Assessment Assessment: Current Active Problems Problem Status Onset FESTERING STERNAL WOUND WITH PURULENT DR Acute HTN CHF PUD/GERD cirrhosis benign prostatic hypertrophy hepatitis C major depression - Plan Plan: id consult ivabx psych consult cpm Nutritional Asmnt/Malnutr-PDOC - Dietary Evaluation Malnutrition Findings (Please click <Entered> for more info): Nutritional Asmnt/Malnutrition Start: 11/06/17 16: 10 Text: Status: Complete Freq: Protocol: Document 11/06/17 16:23 LCHENG (Rec: 11/06/17 16:40 LCHENG [email or web address]) Nutritional Asmnt/Malnutrition Patient General Information Nutritional Screening Low Risk Consult Diagnosis wound incision infection to sterum Pertinent Medical Hx/Surgical Hx HTN, CHF, PUD, GERD, cell wall cellulitis, s/p PNA, cirrhosis, BPH, hep C, major depression Subjective Information Pt seen sleeping in bed at time of visit. Per nurse, pt will have debridement tommorrow. Per EMR, PO intake 50-75%. pt is on linezolid noted. Not able to provide food-drug interaction at this time d/t pt not available. Pt is now provided with regular diet, no interaction with linezolid at this time. Will attempt to provide education on next visit. Current Diet Order/ Nutrition Support regular Pertinent Medications linezolid, colace, protonix Pertinent Labs 11/05 glucose 114 Nutritional Hx/Data Height 1.73 m Height (Calculated Centimeters) 172.7 Current Weight (lbs) 72.575 kg Weight (Calculated Kilograms) 72.6 Weight (Calculated Grams) 06955.8 [place] Body Weight 154 Body Mass Index (BMI) 24.3 Weight Status Approriate GI Symptoms GI Symptoms None Last BM 11/04 x 2 Difficult in: None Skin Integrity/Comment: non-healing incision to superior/inferior chest Current %PO Fair (50-74%) Estimated Nutritional Goals BEE in Kcals: Using Current wt Calories/Kcals/Kg 25-30 Kcals Calculated 2148-8877 Protein: Using Current wt Protein g/k.2 Protein Calculated 88 Fluid: ml 1825-2190ml (1ml/kcal) Nutritional Problem 1. Problem Problem increased nutrition needs Etiology impaired skin integrity Signs/Symptoms: non-healing incision to chest Malnutrition Alert Is there a minimum of two criteria No selected? Query Text:Check all the applicable criteria. A minimum of two criteria are recommended for diagnosis of either severe or non-severe malnutrition. Malnutrition Related to Morbid Obesity Malnutrition related to morbid obesity No Intervention/Recommendation Comments 1. Continue with current diet as ordered. Consider Brennan BID to help wound healing. If PO intake <75%, will consider adding Ensure Enlive daily. 2. Monitor PO intake, wt, labs and skin integrity 3. F/U as high risk in 2-3 days, 11/08-11/09 Expected Outcomes/Goals Expected Outcomes/Goals 1. PO intake to meet at least 75% of nutritional needs. 2. Wt stability, skin integrety to improve, labs to approach WNL.
[2017-11-07] MEDS: ceFAZolin 2 GM in Sodium Chloride 0.9% 100 ML IV SCH ×2 (16:01→22:44)
[2017-11-08] MEDS: HYDROmorphone 1 mg/mL 1mL Syr IVP PRN ×3 (04:43→16:26)
[2017-11-08 06:18] LABS: HEMATOCRIT 29.1 % (41.0-60); HEMOGLOBIN 9.8 gm/dL (12-16); MEAN CELL VOLUME 94.2 fl (80-99); MEAN CORPUSCULAR HEMOGLOBIN 31.6 pg (26.0-30.0); MEAN CORPUSCULAR HGB CONC 33.6 pg (28.0-36.0); PLATELET COUNT 56 Th/cmm (150-400); RED BLOOD COUNT 3.09 Mil/cmm (4.30-5.70); RED CELL DISTRIBUTION WIDTH 15.3 % (11.5-20.0)
[2017-11-08] MEDS: ceFAZolin 2 GM in Sodium Chloride 0.9% 100 ML IV SCH ×2 (06:22→14:00)
[2017-11-08] MEDS: Pantoprazole 40 mg EC Tab PO SCH (06:30)
[2017-11-08 06:57] LABS: WHITE BLOOD COUNT 3.7 Th/cmm (4.8-10.8)
[2017-11-08 07:19] LABS: EOSINOPHIL 5 % (0-5); LYMPHOCYTE 13 % (20-50); MONOCYTE 8 % (2-10); NEUTROPHILS 74 % (40-80)
[2017-11-08 07:20] LABS: BAND NEUTROPHILE 0 % (0-10); BASOPHIL 0 % (0-3); PLATELET ESTIMATE DECREASED PLATELETS (NORMAL)
[2017-11-08] MEDS: Aspirin 81mg Chewable Tab PO SCH (08:39)
--- NOTE | 2017-11-08 08:51 | General Progress Note ---
Subjective - Review of Systems Service Date: 11/08/17 Events since last encounter: await culture redress with iodoform gauze need referral to tertiary center for removal of sternal wires Objective - Results Result Diagrams: 11/08/17 05:50 11/05/17 04:20 Recent Labs: Laboratory Last Values WBC 3.7 Th/cmm (4.8-10.8) L 11/08/17 05:50 RBC 3.09 Mil/cmm (4.30-5.70) L 11/08/17 05:50 Hgb 9.8 gm/dL (12-16) L 11/08/17 05:50 Hct 29.1 % (41.0-60) L 11/08/17 05:50 MCV 94.2 fl (80-99) 11/08/17 05:50 MCH 31.6 pg (26.0-30.0) H 11/08/17 05:50 MCHC Differential 33.6 pg (28.0-36.0) 11/08/17 05:50 RDW 15.3 % (11.5-20.0) 11/08/17 05:50 Plt Count 56 Th/cmm (150-400) L 11/08/17 05:50 MPV 8.0 fl 11/08/17 05:50 Add Manual Diff YES 11/08/17 05:50 Neutrophils % 69.4 % (40.0-80.0) 11/07/17 05:30 Band Neutrophils % 0 % (0-10) 11/08/17 05:50 Lymphocytes % 12.5 % (20.0-50.0) L 11/07/17 05:30 Monocytes % 11.6 % (2.0-10.0) H 11/07/17 05:30 Eosinophils % 5.7 % (0.0-5.0) H 11/07/17 05:30 Basophils % 0.8 % (0.0-2.0) 11/07/17 05:30 Neutrophils (Manual) 74 % (40-80) 11/08/17 05:50 Lymphocytes 13 % (20-50) L 11/08/17 05:50 Monocytes 8 % (2-10) 11/08/17 05:50 Eosinophils 5 % (0-5) 11/08/17 05:50 Basophils 0 % (0-3) 11/08/17 05:50 Platelet Estimate DECREASED PLATELETS (NORMAL) 11/08/17 05:50 PT 13.7 SECONDS (9.5-11.5) H 11/05/17 04:20 INR 1.30 (0.5-1.4) 11/05/17 04:20 PTT (Actin FS) 31.6 SECONDS (26.0-38.0) 11/05/17 04:20 Sodium 136 mEq/L (136-145) 11/05/17 04:20 Potassium 3.6 mEq/L (3.5-5.1) 11/05/17 04:20 Chloride 104 mEq/L (98-107) 11/05/17 04:20 Carbon Dioxide 28.2 mEq/L (21.0-31.0) 11/05/17 04:20 Anion Gap 7.4 (7.0-16.0) 11/05/17 04:20 BUN 16 mg/dL (7-25) 11/05/17 04:20 Creatinine 0.8 mg/dL (0.7-1.3) 11/05/17 04:20 Est GFR ( Amer) > 60.0 ml/min (>90) 11/05/17 04:20 Est GFR (Non-Af Amer) > 60.0 ml/min 11/05/17 04:20 BUN/Creatinine Ratio 20.0 11/05/17 04:20 Glucose 114 mg/dL (70-105) H 11/05/17 04:20 Whole Bld Lactic Acid 1.55 mmol/L (0.60-1.99) 11/01/17 12:30 Calcium 9.0 mg/dL (8.6-10.3) 11/05/17 04:20 Total Bilirubin 1.3 mg/dL (0.3-1.0) H 11/05/17 04:20 AST 23 U/L (13-39) 11/05/17 04:20 ALT 15 U/L (7-52) 11/05/17 04:20 Alkaline Phosphatase 99 U/L (34-104) 11/05/17 04:20 B-Natriuretic Peptide 196.0 pg/mL (5.0-100.0) H 11/01/17 12:30 Total Protein 6.1 gm/dL (6.0-8.3) 11/05/17 04:20 Albumin 2.8 gm/dL (4.2-5.5) L 11/05/17 04:20 Globulin 3.3 gm/dL 11/05/17 04:20 Albumin/Globulin Ratio 0.9 (1.0-1.8) L 11/05/17 04:20 Blood Type AB POSITIVE 11/06/17 09:45 - Physical Exam Vitals and I&O: Vital Signs Temp 97.5 F 11/08/17 07:42 Pulse 89 11/08/17 08:38 Resp 19 11/08/17 08:32 BP 127/64 11/08/17 08:38 Pulse Ox 95 11/08/17 07:42 Intake & Output 11/07/17 11/08/17 11/08/17 18:59 06:59 18:59 Intake Total 3150 1100 Balance 3150 1100 Weight (lbs) 72.575 kg 76.657 kg Intake: Intake, IV Amount 300 300 DAPTOmycin 450 mg In 100 Sodium Chloride 0.9% 100 ml @ 100 mls/hr IV Q24H [facility] Rx#:[id number] Linezolid 600mg/300mL 600 300 mg In 300 ml @ 300 mls/ hr IV Q12HR [facility] Rx#: [id number] ceFAZolin 2 gm In Sodium 200 Chloride 0.9% 100 ml @ 100 mls/hr IV Q8H [facility] Rx# :[id number] Oral 2500 800 Blood Product 350 Other: # Voids 4 5 # Bowel Movements 3 2 Weight Source Bedscale Bedscale Active Medications: Current Medications Acetaminophen (Tylenol) 650 mg PO Q4H PRN PRN Reason: MILD PAIN Stop: 01/01/18 07:47 Acetaminophen (Tylenol Extra Strength) 1,000 mg PO Q8H PRN PRN Reason: MODERATE PAIN Stop: 01/01/18 07:47 Aspirin (Aspirin Chewable) 81 mg PO DAILY [facility] Stop: 01/01/18 08:59 Last Admin: 11/08/17 08:39 Dose: Not Given Bisacodyl (Dulcolax 10 Mg Supp) 10 mg RC DAILY PRN PRN Reason: IF MOM INEFFECTIVE Stop: 01/01/18 07:47 Bumetanide (Bumex) 1 mg PO DAILY [facility] Stop: 01/01/18 08:59 Last Admin: 11/08/17 08:38 Dose: 1 mg Docusate Sodium (Colace) 100 mg PO DAILY [facility] Stop: 01/01/18 08:59 Last Admin: 11/08/17 08:39 Dose: Not Given Escitalopram Oxalate (Lexapro) 10 mg PO DAILY [facility]; Protocol Stop: 01/04/18 08:59 Last Admin: 11/08/17 08:36 Dose: 10 mg Hydromorphone HCl (Dilaudid) 1 mg IVP Q4HR PRN PRN Reason: Pain (Severe); Breakthrough Pa Stop: 01/04/18 00:55 Last Admin: 11/08/17 04:43 Dose: 1 mg Daptomycin 450 mg/ Sodium (Chloride) 100 mls @ 100 mls/hr IV Q24H [facility] Stop: 01/06/18 15:59 Last Infusion: 11/07/17 19:34 Dose: Infused Cefazolin Sodium 2 gm/ Sodium (Chloride) 100 mls @ 100 mls/hr IV Q8H [facility] Stop: 01/06/18 14:59 Last Admin: 11/08/17 06:22 Dose: 100 mls/hr Ibuprofen (Motrin) 600 mg PO TID [facility] Stop: 12/31/17 20:59 Last Admin: 11/08/17 08:37 Dose: 600 mg Ibuprofen (Motrin) 600 mg PO TID PRN PRN Reason: Severe Pain Stop: 01/01/18 07:47 Last Admin: 11/06/17 00:30 Dose: 600 mg Loperamide HCl (Imodium) 4 mg PO Q6H PRN PRN Reason: Loose Stools Stop: 01/01/18 07:47 Last Admin: 11/07/17 09:56 Dose: 4 mg Magnesium Hydroxide (Milk Of Magnesia) 30 ml PO HS PRN PRN Reason: Constipation Stop: 01/01/18 07:47 Metoprolol Succinate (Toprol Xl) 25 mg PO DAILY [facility] Stop: 01/01/18 08:59 Last Admin: 11/08/17 08:36 Dose: 25 mg Miscellaneous (Probiotic Screen) 1 ea MC PRN PRN PRN Reason: PROTOCOL Stop: 01/01/18 13:50 Morphine Sulfate (Ms-Contin) 15 mg PO Q12H [facility] Stop: 01/01/18 07:59 Last Admin: 11/08/17 08:38 Dose: 15 mg Pantoprazole Sodium (Protonix) 40 mg PO QDAC [facility] Stop: 01/01/18 08:59 Last Admin: 11/08/17 06:30 Dose: 40 mg Sodium Phosphate (Fleet Enema) 135 ml RC Q48H PRN PRN Reason: IF DULCOLAX INEFFECTIVE Stop: 01/01/18 07:47 Spironolactone (Aldactone) 25 mg PO DAILY [facility] Stop: 01/01/18 08:59 Last Admin: 11/08/17 08:38 Dose: 25 mg Tamsulosin HCl (Flomax) 0.4 mg PO HS [facility] Stop: 01/01/18 20:59 Last Admin: 11/07/17 21:07 Dose: 0.4 mg Zolpidem Tartrate (Ambien) 5 mg PO HS PRN PRN Reason: Insomnia Stop: 12/31/17 19:31 Last Admin: 11/07/17 22:44 Dose: 5 mg General: No acute distress HEENT: Atraumatic Neck: Supple, JVD Cardiovascular: Regular rate, Normal S1 Lungs: Clear to auscultation Abdomen: Bowel sounds - Procedures Procedures: Procedures Procedure Code Date EXCISION OF CHEST SUBCU/FASCIA, OPEN APPROACH [id number] 11/01/17 Assessment/Plan - Problem List Patient Problems: All Active Problems FESTERING STERNAL WOUND WITH PURULENT DR (Acute) Nutritional Asmnt/Malnutr-PDOC - Dietary Evaluation Malnutrition Findings (Please click <Entered> for more info): Nutritional Asmnt/Malnutrition Start: 11/06/17 16: 10 Text: Status: Complete Freq: Protocol: Document 11/06/17 16:23 LCHENG (Rec: 11/06/17 16:40 LCHENG [id number]) Nutritional Asmnt/Malnutrition Patient General Information Nutritional Screening Low Risk Consult Diagnosis wound incision infection to sterum Pertinent Medical Hx/Surgical Hx HTN, CHF, PUD, GERD, cell wall cellulitis, s/p PNA, cirrhosis, BPH, hep C, major depression Subjective Information Pt seen sleeping in bed at time of visit. Per nurse, pt will have debridement tommorrow. Per EMR, PO intake 50-75%. pt is on linezolid noted. Not able to provide food-drug interaction at this time d/t pt not available. Pt is now provided with regular diet, no interaction with linezolid at this time. Will attempt to provide education on next visit. Current Diet Order/ Nutrition Support regular Pertinent Medications linezolid, colace, protonix Pertinent Labs 11/05 glucose 114 Nutritional Hx/Data Height 1.73 m Height (Calculated Centimeters) 172.7 Current Weight (lbs) 72.575 kg Weight (Calculated Kilograms) 72.6 Weight (Calculated Grams) 26987.8 [place] Body Weight 154 Body Mass Index (BMI) 24.3 Weight Status Approriate GI Symptoms GI Symptoms None Last BM 11/04 x 2 Difficult in: None Skin Integrity/Comment: non-healing incision to superior/inferior chest Current %PO Fair (50-74%) Estimated Nutritional Goals BEE in Kcals: Using Current wt Calories/Kcals/Kg 25-30 Kcals Calculated 7782-8303 Protein: Using Current wt Protein g/k.2 Protein Calculated 88 Fluid: ml 1825-2190ml (1ml/kcal) Nutritional Problem 1. Problem Problem increased nutrition needs Etiology impaired skin integrity Signs/Symptoms: non-healing incision to chest Malnutrition Alert Is there a minimum of two criteria No selected? Query Text:Check all the applicable criteria. A minimum of two criteria are recommended for diagnosis of either severe or non-severe malnutrition. Malnutrition Related to Morbid Obesity Malnutrition related to morbid obesity No Intervention/Recommendation Comments 1. Continue with current diet as ordered. Consider Brennan BID to help wound healing. If PO intake <75%, will consider adding Ensure Enlive daily. 2. Monitor PO intake, wt, labs and skin integrity 3. F/U as high risk in 2-3 days, 11/08-11/09 Expected Outcomes/Goals Expected Outcomes/Goals 1. PO intake to meet at least 75% of nutritional needs. 2. Wt stability, skin integrety to improve, labs to approach WNL.
--- NOTE | 2017-11-08 08:52 | General Progress Note ---
Subjective - Review of Systems Service Date: 11/08/17 Events since last encounter: platelet count remains low at 56,000 Objective - Results Result Diagrams: 11/08/17 05:50 11/05/17 04:20 Recent Labs: Laboratory Last Values WBC 3.7 Th/cmm (4.8-10.8) L 11/08/17 05:50 RBC 3.09 Mil/cmm (4.30-5.70) L 11/08/17 05:50 Hgb 9.8 gm/dL (12-16) L 11/08/17 05:50 Hct 29.1 % (41.0-60) L 11/08/17 05:50 MCV 94.2 fl (80-99) 11/08/17 05:50 MCH 31.6 pg (26.0-30.0) H 11/08/17 05:50 MCHC Differential 33.6 pg (28.0-36.0) 11/08/17 05:50 RDW 15.3 % (11.5-20.0) 11/08/17 05:50 Plt Count 56 Th/cmm (150-400) L 11/08/17 05:50 MPV 8.0 fl 11/08/17 05:50 Add Manual Diff YES 11/08/17 05:50 Neutrophils % 69.4 % (40.0-80.0) 11/07/17 05:30 Band Neutrophils % 0 % (0-10) 11/08/17 05:50 Lymphocytes % 12.5 % (20.0-50.0) L 11/07/17 05:30 Monocytes % 11.6 % (2.0-10.0) H 11/07/17 05:30 Eosinophils % 5.7 % (0.0-5.0) H 11/07/17 05:30 Basophils % 0.8 % (0.0-2.0) 11/07/17 05:30 Neutrophils (Manual) 74 % (40-80) 11/08/17 05:50 Lymphocytes 13 % (20-50) L 11/08/17 05:50 Monocytes 8 % (2-10) 11/08/17 05:50 Eosinophils 5 % (0-5) 11/08/17 05:50 Basophils 0 % (0-3) 11/08/17 05:50 Platelet Estimate DECREASED PLATELETS (NORMAL) 11/08/17 05:50 PT 13.7 SECONDS (9.5-11.5) H 11/05/17 04:20 INR 1.30 (0.5-1.4) 11/05/17 04:20 PTT (Actin FS) 31.6 SECONDS (26.0-38.0) 11/05/17 04:20 Sodium 136 mEq/L (136-145) 11/05/17 04:20 Potassium 3.6 mEq/L (3.5-5.1) 11/05/17 04:20 Chloride 104 mEq/L (98-107) 11/05/17 04:20 Carbon Dioxide 28.2 mEq/L (21.0-31.0) 11/05/17 04:20 Anion Gap 7.4 (7.0-16.0) 11/05/17 04:20 BUN 16 mg/dL (7-25) 11/05/17 04:20 Creatinine 0.8 mg/dL (0.7-1.3) 11/05/17 04:20 Est GFR ( Amer) > 60.0 ml/min (>90) 11/05/17 04:20 Est GFR (Non-Af Amer) > 60.0 ml/min 11/05/17 04:20 BUN/Creatinine Ratio 20.0 11/05/17 04:20 Glucose 114 mg/dL (70-105) H 11/05/17 04:20 Whole Bld Lactic Acid 1.55 mmol/L (0.60-1.99) 11/01/17 12:30 Calcium 9.0 mg/dL (8.6-10.3) 11/05/17 04:20 Total Bilirubin 1.3 mg/dL (0.3-1.0) H 11/05/17 04:20 AST 23 U/L (13-39) 11/05/17 04:20 ALT 15 U/L (7-52) 11/05/17 04:20 Alkaline Phosphatase 99 U/L (34-104) 11/05/17 04:20 B-Natriuretic Peptide 196.0 pg/mL (5.0-100.0) H 11/01/17 12:30 Total Protein 6.1 gm/dL (6.0-8.3) 11/05/17 04:20 Albumin 2.8 gm/dL (4.2-5.5) L 11/05/17 04:20 Globulin 3.3 gm/dL 11/05/17 04:20 Albumin/Globulin Ratio 0.9 (1.0-1.8) L 11/05/17 04:20 Blood Type AB POSITIVE 11/06/17 09:45 - Physical Exam Vitals and I&O: Vital Signs Temp 97.5 F 11/08/17 07:42 Pulse 89 11/08/17 08:38 Resp 19 11/08/17 08:32 BP 127/64 11/08/17 08:38 Pulse Ox 95 11/08/17 07:42 Intake & Output 11/07/17 11/08/17 11/08/17 18:59 06:59 18:59 Intake Total 3150 1100 Balance 3150 1100 Weight (lbs) 72.575 kg 76.657 kg Intake: Intake, IV Amount 300 300 DAPTOmycin 450 mg In 100 Sodium Chloride 0.9% 100 ml @ 100 mls/hr IV Q24H [facility] Rx#:[id number] Linezolid 600mg/300mL 600 300 mg In 300 ml @ 300 mls/ hr IV Q12HR [facility] Rx#: [id number] ceFAZolin 2 gm In Sodium 200 Chloride 0.9% 100 ml @ 100 mls/hr IV Q8H [facility] Rx# :[id number] Oral 2500 800 Blood Product 350 Other: # Voids 4 5 # Bowel Movements 3 2 Weight Source Bedscale Bedscale Active Medications: Current Medications Acetaminophen (Tylenol) 650 mg PO Q4H PRN PRN Reason: MILD PAIN Stop: 01/01/18 07:47 Acetaminophen (Tylenol Extra Strength) 1,000 mg PO Q8H PRN PRN Reason: MODERATE PAIN Stop: 01/01/18 07:47 Aspirin (Aspirin Chewable) 81 mg PO DAILY [facility] Stop: 01/01/18 08:59 Last Admin: 11/08/17 08:39 Dose: Not Given Bisacodyl (Dulcolax 10 Mg Supp) 10 mg RC DAILY PRN PRN Reason: IF MOM INEFFECTIVE Stop: 01/01/18 07:47 Bumetanide (Bumex) 1 mg PO DAILY [facility] Stop: 01/01/18 08:59 Last Admin: 11/08/17 08:38 Dose: 1 mg Docusate Sodium (Colace) 100 mg PO DAILY [facility] Stop: 01/01/18 08:59 Last Admin: 11/08/17 08:39 Dose: Not Given Escitalopram Oxalate (Lexapro) 10 mg PO DAILY [facility]; Protocol Stop: 01/04/18 08:59 Last Admin: 11/08/17 08:36 Dose: 10 mg Hydromorphone HCl (Dilaudid) 1 mg IVP Q4HR PRN PRN Reason: Pain (Severe); Breakthrough Pa Stop: 01/04/18 00:55 Last Admin: 11/08/17 04:43 Dose: 1 mg Daptomycin 450 mg/ Sodium (Chloride) 100 mls @ 100 mls/hr IV Q24H [facility] Stop: 01/06/18 15:59 Last Infusion: 11/07/17 19:34 Dose: Infused Cefazolin Sodium 2 gm/ Sodium (Chloride) 100 mls @ 100 mls/hr IV Q8H [facility] Stop: 01/06/18 14:59 Last Admin: 11/08/17 06:22 Dose: 100 mls/hr Ibuprofen (Motrin) 600 mg PO TID [facility] Stop: 12/31/17 20:59 Last Admin: 11/08/17 08:37 Dose: 600 mg Ibuprofen (Motrin) 600 mg PO TID PRN PRN Reason: Severe Pain Stop: 01/01/18 07:47 Last Admin: 11/06/17 00:30 Dose: 600 mg Loperamide HCl (Imodium) 4 mg PO Q6H PRN PRN Reason: Loose Stools Stop: 01/01/18 07:47 Last Admin: 11/07/17 09:56 Dose: 4 mg Magnesium Hydroxide (Milk Of Magnesia) 30 ml PO HS PRN PRN Reason: Constipation Stop: 01/01/18 07:47 Metoprolol Succinate (Toprol Xl) 25 mg PO DAILY [facility] Stop: 01/01/18 08:59 Last Admin: 11/08/17 08:36 Dose: 25 mg Miscellaneous (Probiotic Screen) 1 ea MC PRN PRN PRN Reason: PROTOCOL Stop: 01/01/18 13:50 Morphine Sulfate (Ms-Contin) 15 mg PO Q12H [facility] Stop: 01/01/18 07:59 Last Admin: 07/19/18 08:38 Dose: 15 mg Pantoprazole Sodium (Protonix) 40 mg PO QDAC [facility] Stop: 01/01/18 08:59 Last Admin: 11/08/17 06:30 Dose: 40 mg Sodium Phosphate (Fleet Enema) 135 ml RC Q48H PRN PRN Reason: IF DULCOLAX INEFFECTIVE Stop: 01/01/18 07:47 Spironolactone (Aldactone) 25 mg PO DAILY [facility] Stop: 01/01/18 08:59 Last Admin: 11/08/17 08:38 Dose: 25 mg Tamsulosin HCl (Flomax) 0.4 mg PO HS [facility] Stop: 01/01/18 20:59 Last Admin: 11/07/17 21:07 Dose: 0.4 mg Zolpidem Tartrate (Ambien) 5 mg PO HS PRN PRN Reason: Insomnia Stop: 12/31/17 19:31 Last Admin: 11/07/17 22:44 Dose: 5 mg General: No acute distress HEENT: Atraumatic Neck: Supple, JVD Cardiovascular: Regular rate, Normal S1 Lungs: Clear to auscultation Abdomen: Bowel sounds - Procedures Procedures: Procedures Procedure Code Date EXCISION OF CHEST SUBCU/FASCIA, OPEN APPROACH [id number] 11/01/17 Assessment/Plan - Problem List Patient Problems: All Active Problems FESTERING STERNAL WOUND WITH PURULENT DR (Acute) Nutritional Asmnt/Malnutr-PDOC - Dietary Evaluation Malnutrition Findings (Please click <Entered> for more info): Nutritional Asmnt/Malnutrition Start: 11/06/17 16: 10 Text: Status: Complete Freq: Protocol: Document 11/06/17 16:23 [email or web address] (Rec: 11/06/17 16:40 [email or web address]) Nutritional Asmnt/Malnutrition Patient General Information Nutritional Screening Low Risk Consult Diagnosis wound incision infection to sterum Pertinent Medical Hx/Surgical Hx HTN, CHF, PUD, GERD, cell wall cellulitis, s/p PNA, cirrhosis, BPH, hep C, major depression Subjective Information Pt seen sleeping in bed at time of visit. Per nurse, pt will have debridement tommorrow. Per EMR, PO intake 50-75%. pt is on linezolid noted. Not able to provide food-drug interaction at this time d/t pt not available. Pt is now provided with regular diet, no interaction with linezolid at this time. Will attempt to provide education on next visit. Current Diet Order/ Nutrition Support regular Pertinent Medications linezolid, colace, protonix Pertinent Labs 11/05 glucose 114 Nutritional Hx/Data Height 1.73 m Height (Calculated Centimeters) 172.7 Current Weight (lbs) 72.575 kg Weight (Calculated Kilograms) 72.6 Weight (Calculated Grams) [address]381.8 [place] Body Weight 154 Body Mass Index (BMI) 24.3 Weight Status Approriate GI Symptoms GI Symptoms None Last BM 11/04 x 2 Difficult in: None Skin Integrity/Comment: non-healing incision to superior/inferior chest Current %PO Fair (50-74%) Estimated Nutritional Goals BEE in Kcals: Using Current wt Calories/Kcals/Kg 25-30 Kcals Calculated 7958-8713 Protein: Using Current wt Protein g/k.2 Protein Calculated 88 Fluid: ml 1825-2190ml (1ml/kcal) Nutritional Problem 1. Problem Problem increased nutrition needs Etiology impaired skin integrity Signs/Symptoms: non-healing incision to chest Malnutrition Alert Is there a minimum of two criteria No selected? Query Text:Check all the applicable criteria. A minimum of two criteria are recommended for diagnosis of either severe or non-severe malnutrition. Malnutrition Related to Morbid Obesity Malnutrition related to morbid obesity No Intervention/Recommendation Comments 1. Continue with current diet as ordered. Consider Brennan BID to help wound healing. If PO intake <75%, will consider adding Ensure Enlive daily. 2. Monitor PO intake, wt, labs and skin integrity 3. F/U as high risk in 2-3 days, 11/08-11/09 Expected Outcomes/Goals Expected Outcomes/Goals 1. PO intake to meet at least 75% of nutritional needs. 2. Wt stability, skin integrety to improve, labs to approach WNL.
--- NOTE | 2017-11-08 12:22 | General Progress Note ---
Subjective - Review of Systems Events since last encounter: redress iodoform gauze in no acute distress Objective - Results Result Diagrams: 11/08/17 05:50 11/05/17 04:20 Recent Labs: Laboratory Last Values WBC 3.7 Th/cmm (4.8-10.8) L 11/08/17 05:50 RBC 3.09 Mil/cmm (4.30-5.70) L 11/08/17 05:50 Hgb 9.8 gm/dL (12-16) L 11/08/17 05:50 Hct 29.1 % (41.0-60) L 11/08/17 05:50 MCV 94.2 fl (80-99) 11/08/17 05:50 MCH 31.6 pg (26.0-30.0) H 11/08/17 05:50 MCHC Differential 33.6 pg (28.0-36.0) 11/08/17 05:50 RDW 15.3 % (11.5-20.0) 11/08/17 05:50 Plt Count 56 Th/cmm (150-400) L 11/08/17 05:50 MPV 8.0 fl 11/08/17 05:50 Add Manual Diff YES 11/08/17 05:50 Neutrophils % 69.4 % (40.0-80.0) 11/07/17 05:30 Band Neutrophils % 0 % (0-10) 11/08/17 05:50 Lymphocytes % 12.5 % (20.0-50.0) L 11/07/17 05:30 Monocytes % 11.6 % (2.0-10.0) H 11/07/17 05:30 Eosinophils % 5.7 % (0.0-5.0) H 11/07/17 05:30 Basophils % 0.8 % (0.0-2.0) 11/07/17 05:30 Neutrophils (Manual) 74 % (40-80) 11/08/17 05:50 Lymphocytes 13 % (20-50) L 11/08/17 05:50 Monocytes 8 % (2-10) 11/08/17 05:50 Eosinophils 5 % (0-5) 11/08/17 05:50 Basophils 0 % (0-3) 11/08/17 05:50 Platelet Estimate DECREASED PLATELETS (NORMAL) 11/08/17 05:50 PT 13.7 SECONDS (9.5-11.5) H 11/05/17 04:20 INR 1.30 (0.5-1.4) 11/05/17 04:20 PTT (Actin FS) 31.6 SECONDS (26.0-38.0) 11/05/17 04:20 Sodium 136 mEq/L (136-145) 11/05/17 04:20 Potassium 3.6 mEq/L (3.5-5.1) 11/05/17 04:20 Chloride 104 mEq/L (98-107) 11/05/17 04:20 Carbon Dioxide 28.2 mEq/L (21.0-31.0) 11/05/17 04:20 Anion Gap 7.4 (7.0-16.0) 11/05/17 04:20 BUN 16 mg/dL (7-25) 11/05/17 04:20 Creatinine 0.8 mg/dL (0.7-1.3) 11/05/17 04:20 Est GFR ( Amer) > 60.0 ml/min (>90) 11/05/17 04:20 Est GFR (Non-Af Amer) > 60.0 ml/min 11/05/17 04:20 BUN/Creatinine Ratio 20.0 11/05/17 04:20 Glucose 114 mg/dL (70-105) H 11/05/17 04:20 Whole Bld Lactic Acid 1.55 mmol/L (0.60-1.99) 11/01/17 12:30 Calcium 9.0 mg/dL (8.6-10.3) 11/05/17 04:20 Total Bilirubin 1.3 mg/dL (0.3-1.0) H 11/05/17 04:20 AST 23 U/L (13-39) 11/05/17 04:20 ALT 15 U/L (7-52) 11/05/17 04:20 Alkaline Phosphatase 99 U/L (34-104) 11/05/17 04:20 B-Natriuretic Peptide 196.0 pg/mL (5.0-100.0) H 11/01/17 12:30 Total Protein 6.1 gm/dL (6.0-8.3) 11/05/17 04:20 Albumin 2.8 gm/dL (4.2-5.5) L 11/05/17 04:20 Globulin 3.3 gm/dL 11/05/17 04:20 Albumin/Globulin Ratio 0.9 (1.0-1.8) L 11/05/17 04:20 Blood Type AB POSITIVE 11/06/17 09:45 - Physical Exam Vitals and I&O: Vital Signs Temp 98.3 F 11/08/17 11:32 Pulse 87 11/08/17 11:32 Resp 18 11/08/17 11:32 BP 119/74 11/08/17 11:32 Pulse Ox 93 11/08/17 11:32 Intake & Output 11/07/17 11/08/17 11/08/17 18:59 06:59 18:59 Intake Total 3150 1100 Balance 3150 1100 Weight (lbs) 72.575 kg 76.657 kg Intake: Intake, IV Amount 300 300 DAPTOmycin 450 mg In 100 Sodium Chloride 0.9% 100 ml @ 100 mls/hr IV Q24H [facility] Rx#:[id number] Linezolid 600mg/300mL 600 300 mg In 300 ml @ 300 mls/ hr IV Q12HR [facility] Rx#: [id number] ceFAZolin 2 gm In Sodium 200 Chloride 0.9% 100 ml @ 100 mls/hr IV Q8H [facility] Rx# :[id number] Oral 2500 800 Blood Product 350 Other: # Voids 4 5 # Bowel Movements 3 2 Weight Source Bedscale Bedscale Active Medications: Current Medications Acetaminophen (Tylenol) 650 mg PO Q4H PRN PRN Reason: MILD PAIN Stop: 01/01/18 07:47 Acetaminophen (Tylenol Extra Strength) 1,000 mg PO Q8H PRN PRN Reason: MODERATE PAIN Stop: 01/01/18 07:47 Aspirin (Aspirin Chewable) 81 mg PO DAILY [facility] Stop: 01/01/18 08:59 Last Admin: 11/08/17 08:39 Dose: Not Given Bisacodyl (Dulcolax 10 Mg Supp) 10 mg RC DAILY PRN PRN Reason: IF MOM INEFFECTIVE Stop: 01/01/18 07:47 Bumetanide (Bumex) 1 mg PO DAILY [facility] Stop: 01/01/18 08:59 Last Admin: 11/08/17 08:38 Dose: 1 mg Docusate Sodium (Colace) 100 mg PO DAILY [facility] Stop: 01/01/18 08:59 Last Admin: 11/08/17 08:39 Dose: Not Given Escitalopram Oxalate (Lexapro) 10 mg PO DAILY [facility]; Protocol Stop: 01/04/18 08:59 Last Admin: 11/08/17 08:36 Dose: 10 mg Hydromorphone HCl (Dilaudid) 1 mg IVP Q4HR PRN PRN Reason: Pain (Severe); Breakthrough Pa Stop: 01/04/18 00:55 Last Admin: 11/08/17 11:03 Dose: 1 mg Daptomycin 450 mg/ Sodium (Chloride) 100 mls @ 100 mls/hr IV Q24H [facility] Stop: 01/06/18 15:59 Last Infusion: 11/07/17 19:34 Dose: Infused Cefazolin Sodium 2 gm/ Sodium (Chloride) 100 mls @ 100 mls/hr IV Q8H [facility] Stop: 01/06/18 14:59 Last Admin: 11/08/17 06:22 Dose: 100 mls/hr Ibuprofen (Motrin) 600 mg PO TID [facility] Stop: 12/31/17 20:59 Last Admin: 11/08/17 08:37 Dose: 600 mg Ibuprofen (Motrin) 600 mg PO TID PRN PRN Reason: Severe Pain Stop: 01/01/18 07:47 Last Admin: 11/06/17 00:30 Dose: 600 mg Loperamide HCl (Imodium) 4 mg PO Q6H PRN PRN Reason: Loose Stools Stop: 01/01/18 07:47 Last Admin: 11/07/17 09:56 Dose: 4 mg Magnesium Hydroxide (Milk Of Magnesia) 30 ml PO HS PRN PRN Reason: Constipation Stop: 01/01/18 07:47 Metoprolol Succinate (Toprol Xl) 25 mg PO DAILY [facility] Stop: 01/01/18 08:59 Last Admin: 11/08/17 08:36 Dose: 25 mg Miscellaneous (Probiotic Screen) 1 ea MC PRN PRN PRN Reason: PROTOCOL Stop: 01/01/18 13:50 Morphine Sulfate (Ms-Contin) 15 mg PO Q12H [facility] Stop: 01/01/18 07:59 Last Admin: 11/08/17 08:38 Dose: 15 mg Pantoprazole Sodium (Protonix) 40 mg PO QDAC [facility] Stop: 01/01/18 08:59 Last Admin: 11/08/17 06:30 Dose: 40 mg Sodium Phosphate (Fleet Enema) 135 ml RC Q48H PRN PRN Reason: IF DULCOLAX INEFFECTIVE Stop: 01/01/18 07:47 Spironolactone (Aldactone) 25 mg PO DAILY [facility] Stop: 01/01/18 08:59 Last Admin: 11/08/17 08:38 Dose: 25 mg Tamsulosin HCl (Flomax) 0.4 mg PO HS [facility] Stop: 01/01/18 20:59 Last Admin: 11/07/17 21:07 Dose: 0.4 mg Zolpidem Tartrate (Ambien) 5 mg PO HS PRN PRN Reason: Insomnia Stop: 12/31/17 19:31 Last Admin: 11/07/17 22:44 Dose: 5 mg General: No acute distress HEENT: Atraumatic Neck: Supple, JVD Cardiovascular: Regular rate, Normal S1 Lungs: Clear to auscultation Abdomen: Bowel sounds - Procedures Procedures: Procedures Procedure Code Date EXCISION OF CHEST SUBCU/FASCIA, OPEN APPROACH [id number] 11/01/17 Assessment/Plan - Problem List Patient Problems: All Active Problems FESTERING STERNAL WOUND WITH PURULENT DR (Acute) - Assessment Assessment: Current Active Problems Problem Status Onset FESTERING STERNAL WOUND WITH PURULENT DR Acute HTN CHF PUD/GERD cirrhosis benign prostatic hypertrophy hepatitis C major depression - Plan Plan: id consult ivabx psych consult cpm Nutritional Asmnt/Malnutr-PDOC - Dietary Evaluation Malnutrition Findings (Please click <Entered> for more info): Nutritional Asmnt/Malnutrition Start: 11/06/17 16: 10 Text: Status: Complete Freq: Protocol: Document 11/06/17 16:23 [email or web address] (Rec: 11/06/17 16:40 [email or web address]) Nutritional Asmnt/Malnutrition Patient General Information Nutritional Screening Low Risk Consult Diagnosis wound incision infection to sterum Pertinent Medical Hx/Surgical Hx HTN, CHF, PUD, GERD, cell wall cellulitis, s/p PNA, cirrhosis, BPH, hep C, major depression Subjective Information Pt seen sleeping in bed at time of visit. Per nurse, pt will have debridement tommorrow. Per EMR, PO intake 50-75%. pt is on linezolid noted. Not able to provide food-drug interaction at this time d/t pt not available. Pt is now provided with regular diet, no interaction with linezolid at this time. Will attempt to provide education on next visit. Current Diet Order/ Nutrition Support regular Pertinent Medications linezolid, colace, protonix Pertinent Labs 11/05 glucose 114 Nutritional Hx/Data Height 1.73 m Height (Calculated Centimeters) 172.7 Current Weight (lbs) 72.575 kg Weight (Calculated Kilograms) 72.6 Weight (Calculated Grams) 66393.8 [place] Body Weight 154 Body Mass Index (BMI) 24.3 Weight Status Approriate GI Symptoms GI Symptoms None Last BM 11/04 x 2 Difficult in: None Skin Integrity/Comment: non-healing incision to superior/inferior chest Current %PO Fair (50-74%) Estimated Nutritional Goals BEE in Kcals: Using Current wt Calories/Kcals/Kg 25-30 Kcals Calculated 3860-8859 Protein: Using Current wt Protein g/k.2 Protein Calculated 88 Fluid: ml 1825-2190ml (1ml/kcal) Nutritional Problem 1. Problem Problem increased nutrition needs Etiology impaired skin integrity Signs/Symptoms: non-healing incision to chest Malnutrition Alert Is there a minimum of two criteria No selected? Query Text:Check all the applicable criteria. A minimum of two criteria are recommended for diagnosis of either severe or non-severe malnutrition. Malnutrition Related to Morbid Obesity Malnutrition related to morbid obesity No Intervention/Recommendation Comments 1. Continue with current diet as ordered. Consider Brennan BID to help wound healing. If PO intake <75%, will consider adding Ensure Enlive daily. 2. Monitor PO intake, wt, labs and skin integrity 3. F/U as high risk in 2-3 days, 11/08-11/09 Expected Outcomes/Goals Expected Outcomes/Goals 1. PO intake to meet at least 75% of nutritional needs. 2. Wt stability, skin integrety to improve, labs to approach WNL.
== END 2017-11-08 16:40 | DRG 721 ==
LOC: ER 12:09 → MSI 14:53
PROVIDERS: ADMIT Internal Medicine; ATTEND Internal Medicine
PROC: 0JB60ZZ Excision of Chest Subcutaneous Tissue and Fascia, Open Approach (ICD-10-PCS; principal; 2017-11-07)
PROC: 30233R1 Transfusion of Nonautologous Platelets into Peripheral Vein, Percutaneous Approach (ICD-10-PCS; 2017-11-07)
DX: T81.4XXA Infection following a procedure, initial encounter (principal); E43 Unspecified severe protein-calorie malnutrition; D61.818 Other pancytopenia; I50.40 Unspecified combined systolic (congestive) and diastolic (congestive) heart failure; I11.0 Hypertensive heart disease with heart failure; K74.60 Unspecified cirrhosis of liver; F33.1 Major depressive disorder, recurrent, moderate; M86.8X8 Other osteomyelitis, other site; K27.9 Peptic ulcer, site unspecified, unspecified as acute or chronic, without hemorrhage or perforation; L03.313 Cellulitis of chest wall; R73.9 Hyperglycemia, unspecified; Z66 Do not resuscitate; N40.0 Benign prostatic hyperplasia without lower urinary tract symptoms; B18.2 Chronic viral hepatitis C; K74.69 Other cirrhosis of liver; K21.9 Gastro-esophageal reflux disease without esophagitis; Y83.8 Other surgical procedures as the cause of abnormal reaction of the patient, or of later complication, without mention of misadventure at the time of the procedure; Y92.89 Other specified places as the place of occurrence of the external cause; Z68.25 Body mass index [BMI] 25.0-25.9, adult
CPT/HCPCS: 36415-UA; 71045-TC; 78315-TC; 80048-TC; 80053-TC; 83605; 83880-TC; 85007-TC; 85025-TC; 85610-TC; 86900-TC; 86901-TC; 87070-90; 87075-90; 87205-90; 93005; A9503; J0690; J0878; J1170; J1815; J2020; J2543; J3010; J3370; J7040; P9035; V2790; Z7610